=== PATIENT | male | born 1940 | race Caucasian/White ===

== ENCOUNTER 2018-07-27 20:22 | Inpatient (IN) | payer MEDICARE ==
--- NOTE | 2018-07-27 21:20 | RAD ---
PA AND LATERAL CHEST: HISTORY: Cough. Upper respiratory symptoms. FINDINGS: The heart size is within normal limits. There is a right upper lobe pneumonic infiltrate present. T he left lung appears clear. IMPRESSION: Right upper lobe pneumonia. POS: [facility]
[2018-07-27 22:29] LABS: White Blood Cell (WBC) Count 73.7 thou/uL (4.8-10.8)
[2018-07-27 22:32] LABS: ALT (SGPT) 37 U/L (8-55); AST (SGOT) 28 U/L (5-34); Albumin 3.8 g/dL (3.4-4.8); Alkaline Phosphatase 90 U/L (40-150); Anion Gap 15 mmol/L (10-20); BUN (Urea Nitrogen) 33 mg/dL (8.4-25.7); Bilirubin, Total 0.8 mg/dL (0.2-1.2); Calc. Creatinine Clearance 0 mL/min (70-130); Calcium 9.5 mg/dL (7.8-10.44); Carbon Dioxide 25 mmol/L (23-31); Chloride 101 mmol/L (98-107); Estimated GFR-MDRD 39; Globulin 2.9 g/dL (2.4-3.5); Glucose 114 mg/dL (83-110); Potassium 4.9 mmol/L (3.5-5.1); Protein, Total 6.7 g/dL (5.8-8.1); Sodium 136 mmol/L (136-145)
[2018-07-27 23:00] LABS: Band 3 % (5-11); Differential Comment Blast-Like Cell(s); Hemoglobin 9.9 g/dL (14.0-18.0); Lymphocytes 71 % (21-51); MDiff Complete? YES; Mean Corpuscular HGB CONC 31.9 g/dL (32.0-36.0); Mean Corpuscular Hemoglobin 35.4 pg (27.0-31.0); Mean Platelet Volume 7.9 fL (7.4-10.4); Monocytes 7 % (0-10); Neutrophil 3 % (42-75); PLT Morphology Comment Appears Adequate; Platelet Count 146 thou/uL (130-400); RBC Distribution Width 13.3 % (11.5-14.5); Red Blood Cell (RBC) Count 2.78 mill/uL (4.70-6.10); Reflex for Review?? YES
[2018-07-28] MEDS ORDERED: Azithromycin 500 MG VIAL ONE (00:32)
[2018-07-28] MEDS ORDERED: Cefepime 2 GM VIAL ONE (00:34)
[2018-07-28] MEDS ORDERED: Acetaminophen 325 MG TAB PO PRN ×2 (02:24→08:31)
[2018-07-28] MEDS ORDERED: Sodium Chloride 0.9% 1,000 ML IV SCH (02:24)
[2018-07-28] MEDS ORDERED: Ondansetron HCl/PF 4 MG/2 ML Vial IVP PRN ×3 (02:24→08:31)
[2018-07-28] MEDS ORDERED: Ondansetron ODT 4 MG TAB SL PRN (02:24)
[2018-07-28 02:45] VITALS: BMI 23.7
[2018-07-28] MEDS ORDERED: traMADol HCl 50 MG TAB PO PRN (08:31)
[2018-07-28] MEDS ORDERED: Loratadine 10 MG TAB PO PRN (08:31)
[2018-07-28] MEDS ORDERED: Diabetic Tussin 200 MG/10 ML UDCUP PO PRN (08:31)
[2018-07-28] MEDS ORDERED: Mag-Al 1200 mg/1200 mg/30 ML UDCUP PO PRN (08:31)
[2018-07-28] MEDS ORDERED: cloNIDine 0.1 MG TAB PO PRN (08:31)
[2018-07-28] MEDS ORDERED: traZODone HCl 50 MG TAB PO PRN (08:31)
[2018-07-28] MEDS ORDERED: Senokot 8.6 MG TAB PO PRN ×2 (08:31)
[2018-07-28] MEDS ORDERED: Benzonatate 100 MG CAP PO PRN (08:31)
[2018-07-28] MEDS ORDERED: Nitroglycerin 0.4 MG TAB (25 Tab Bottle) SL PRN (08:31)
[2018-07-28] MEDS ORDERED: Lorazepam 1 MG TAB PO PRN (08:31)
[2018-07-28] MEDS ORDERED: Bisacodyl 5 MG TAB PO PRN ×2 (08:31)
[2018-07-28] MEDS ORDERED: Calcium Carbonate 500 MG ChewTAB PO PRN (08:31)
[2018-07-28] MEDS ORDERED: hydrALAZINE 20 MG/ML VIAL SLOW IVP PRN (08:31)
[2018-07-28] MEDS ORDERED: Vancomycin HCl 1 GM in Premix Bag 1 BAG IVPB SCH (09:00)
[2018-07-28] MEDS ORDERED: Cefepime 2 GM in Sodium Chloride 0.9% 100 ML IVPB SCH (09:00)
[2018-07-28] MEDS ORDERED: Cefepime 1 GM in Sodium Chloride 0.9% 100 ML IVPB SCH (09:00)
[2018-07-28] MEDS: Sodium Chloride 0.9% 1,000 ML IV SCH ×2 (09:05→13:39)
[2018-07-28 09:41] LABS: Hemoglobin 9.7 g/dL (14.0-18.0); Mean Corpuscular HGB CONC 31.6 g/dL (32.0-36.0); Mean Platelet Volume 7.1 fL (7.4-10.4); Platelet Count 129 thou/uL (130-400); RBC Distribution Width 13.2 % (11.5-14.5); Red Blood Cell (RBC) Count 2.78 mill/uL (4.70-6.10); White Blood Cell (WBC) Count 69.2 thou/uL (4.8-10.8)
[2018-07-28 09:58] LABS: Lymphocytes 93 % (21-51); MDiff Complete? YES; Macrocytosis SLIGHT = 6-15 cells (100X) (0-5/hpf); Monocytes 4 % (0-10); Neutrophil 3 % (42-75)
[2018-07-28] MEDS: Enoxaparin Sodium 40 MG/0.4 ML SYRINGE SC SCH (10:00)
[2018-07-28 10:01] LABS: Anion Gap 14 mmol/L (10-20); BUN (Urea Nitrogen) 24 mg/dL (8.4-25.7); Calc. Creatinine Clearance 58 mL/min (70-130); Calcium 9.1 mg/dL (7.8-10.44); Carbon Dioxide 23 mmol/L (23-31); Chloride 104 mmol/L (98-107); Estimated GFR-MDRD 52; Glucose 128 mg/dL (83-110); Potassium 4.4 mmol/L (3.5-5.1); Sodium 137 mmol/L (136-145); Uric Acid 6.7 mg/dL (3.5-7.2)
[2018-07-28] MEDS: Famotidine 20 MG TAB PO SCH (10:01)
[2018-07-28] MEDS: guaiFENesin ER 600 MG TAB PO SCH ×2 (10:01→21:48)
[2018-07-28] MEDS ORDERED: Amlodipine 10 MG TAB PO SCH ×3 (10:14→11:00)
[2018-07-28] MEDS ORDERED: DESOXIMETASONE TOP PRN (10:14)
[2018-07-28] MEDS ORDERED: Metoprolol Tartrate 50 MG TAB PO SCH ×3 (10:16→21:00)
--- NOTE | 2018-07-28 10:47 | HP ---
PRIMARY CARE PHYSICIAN: Out of [facility]. PRIMARY ONCOLOGIST: Out of [facility]. CHIEF COMPLAINT: Cough. HISTORY OF PRESENT ILLNESS: Mr. 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 History is mainly obtained by the patient himself and electronic medical records have be en reviewed. Mr. Bradford reports that he has been having some mild URI symptoms for the last several days and repor julian that his primary care physician in [place] diagnosed him with pneumonia and told him to come to [facility] emergency room. He otherwise feels very good and has no symptoms at this time. He does have some nonproductive cough, but denies any shortness of breath, chest pain, fever, chills or myalgia, arthr algia. With regards to his history of leukemia, he is not sure what exactly he has, but he reports that he w as told that this can be monitored after he saw an oncologist in [place]. He said that his white chris l count has been reported high, but he was told that he does not require treatment at the moment. He was diagnosed about 1 year ago. Upon presentation to the emergency room, he was hemodynamically stable except for somewhat tachycardi c with a pulse of 103. His blood pressure was 157/72 and he was saturating 96% on room air. He unde rwent a chest x-ray which showed possible right upper lobe pneumonia. He was given IV antibiotics, n amely cefepime and azithromycin and is now being admitted for the same. PAST MEDICAL HISTORY: 1. Chronic kidney disease, status post nephrectomy for unknown reason. 2. Hypertension. 3. B cell leukemia. PAST SURGICAL HISTORY: 1. Nephrectomy. 2. Hernia repair. 3. Uvular taken out to prevent snoring. PSYCHIATRIC HISTORY: None. SOCIAL HISTORY: He has no history of drug, tobacco or alcohol abuse. Fairly active. FAMILY HISTORY: Denies any family history of premature coronary artery disease, stroke, cancer. No history of bleeding or clotting disorders. ALLERGIES: No known medication allergies. MEDICATIONS: Triamterene/hydrochlorothiazide 37.5/25 mg daily, Omnicef was started by PCP recently, Advair 2 sprays daily, amlodipine 10 mg daily, metoprolol 50 mg p.o. b.i.d., Elavil 100 mg daily, artemio azepril 40 mg daily, Nexium 20 mg daily. REVIEW OF SYSTEMS: A 12-point review of systems was done. It is negative except for those mentioned in the history and physical. LABORATORY DATA: CBC initially showed WBC count of 73,000 which the repeat CBC shows a WBC count of 69,000, hemoglobin 9.9, platelet count of 146 to 129 this morning. He has 93% lymphocytes. Peripher al smear pathology review is pending at this time. Serum chemistry shows BUN 33, creatinine 1.72, bl ood sugar 114, LDH is elevated to 366. Phosphorus is normal at 3.0, uric acid is pending. Chest x-ray by my review shows right upper lobe opacity consistent with pneumonia. PHYSICAL EXAMINATION: VITAL SIGNS: Most recent vital signs; temperature 98.7, pulse of 105, respirations 18, saturating 94 % on room air, blood pressure 153/74. His T-max is 100 degrees. GENERAL: No acute distress, awake, alert, oriented x3. HEENT: Mucous membranes are slightly dry. No oropharyngeal exudate or erythema. Head is normocepha lic, atraumatic. Pupils equal, reactive to light and accommodation. Extraocular movements intact. NECK: Supple without any lymphadenopathy, JVD or bruit. CHEST: Clear to auscultation except for a few expiratory wheezes. CARDIOVASCULAR: Rate and rhythm is regular without any murmur, rubs or gallops. ABDOMEN: Soft, nontender, nondistended with positive bowel sounds. EXTREMITIES: Free of any cyanosis, clubbing, or edema. NEUROLOGIC: Nonfocal. SKIN: Free of any rashes or bruises. Feels warm and dry to touch. IMPRESSION AND PLAN: 1. Right upper lobe pneumonia. The patient will be treated symptomatically and supportively along w ith IV antibiotics and IV fluids. He will be treated with cefepime and vancomycin given his immunoco mpromised status. He does not show any signs or symptoms to suggest sepsis. We will send a blood cu lture nevertheless. 2. Leukocytosis. I am not sure if this is indeed a blast crisis. The patient is rather dramaticall y stable without any symptoms at this time. We will check a uric acid, phosphorus, etc., to rule out tumor lysis syndrome and continue intravenous fluids for now. I have discussed the case with Graham bernardo warehouse distribution manager, Dr. Moser and he has requested the pathologist to review for blast cells. Currently, the patient will be treated with supportive care. I am not sure what his baseline WBC count has been or what kind of leukemia he has been diagnosed with. 3. Hypertension. Restart his home medications except for the diuretics given his acute renal insuff iciency. 4. Acute on chronic renal insufficiency. Restart home medications, but hold the diuretics for now. Continue with IV fluids. His repeat creatinine is improved to 1.33 and BUN has improved from 33 to 24. 5. Code status: FULL CODE. Discussed with the patient in detail. 6. Deep venous thrombosis and gastrointestinal prophylaxis. DISPOSITION: Mr. Bradford is currently being admitted to the hospital for right upper lobe pneumonia a nd leukocytosis. He is currently in observation status, given the fact that he is hemodynamically st able. Further management will depend upon his clinical course.
[2018-07-28] MEDS: Vancomycin HCl 1.5 GM in Sodium Chloride 0.9% 250 ML 300 ML IVPB SCH (10:51)
[2018-07-28] MEDS ORDERED: Betamethasone Val 0.1% OINT 15 GM TUBE TOP PRN (11:11)
[2018-07-28 13:04] LABS: Bilirubin Negative (Negative); Blood, Urine Negative (Negative); Clarity CLEAR (Clear); Glucose, Urine (Dipstick) Negative (Negative); Leukocyte Negative (Negative); Nitrite Negative (Negative); Protein, Urine (Dipstick) Negative (Neg-Trace); Specific Gravity, Urine 1.008 (1.002-1.036); pH, Urine 6.5 (5.0-9.0)
[2018-07-28] MEDS ORDERED: Hydroxyurea 500 MG CAP PO SCH (15:00)
--- NOTE | 2018-07-28 17:15 | PDOC.EVN ---
Event Note - Event Note Event Note: leukemic blast crisis can not be ruled out. Awaiting further results .Will change to Inpatient
--- NOTE | 2018-07-28 18:01 | CON ---
DATE OF CONSULTATION: 07/28/2018 REASON FOR CONSULTATION: Leukemia. HISTORY OF PRESENT ILLNESS: A 78-year-old male with history of CLL, chronic kidney disease status post unilateral nephrectomy, presenting to the emergency room with cough and difficulty breathing. The patient states he had mild upper respiratory symptoms for the last few days. Reported to his primary care physician in [place] who told him he had pneumonia and had to go to the emergency room. Patient stated he wanted to come back to [place] if he had to be admitted to the hospital. He otherwise denies any significant complaints and denies fevers, chills, night sweats and states his shortness of breath and cough have improved since admission to the hospital. He says he was diagnosed with CLL last year and follows with an oncologist, Dr. Mayberry in [place]. He says he was told he did not need treatment as of yet for his cancer and would be followed clinically until treatment was necessary. He denies any headaches, dizziness, change in vision, nausea, vomiting, pain or swelling in the hands. His white blood cells on admission to the hospital were 73.7 with a hemoglobin of 9.9 and platelets of 146. Some blast like appearing cells were mentioned in the differential on the CBC and thus Oncology was consulted. REVIEW OF SYSTEMS: Ten-point review of systems negative except as stated in the HPI. PAST MEDICAL HISTORY: B-cell leukemia, chronic kidney disease status post nephrectomy for unknown reason, hypertension. PAST SURGICAL HISTORY: Nephrectomy, hernia repair, uvula removal. SOCIAL HISTORY: Denies tobacco or alcohol. FAMILY HISTORY: Denies any family history of cancer or blood disorders. ALLERGIES: No known drug allergies. CURRENT MEDICATIONS: Reviewed. PHYSICAL EXAMINATION: VITAL SIGNS: Temperature 99, pulse 92, respirations 20, satting 92% on room air , blood pressure 134/65. GENERAL: No acute distress, sitting up in bed. HEENT: Mucous membranes are moist. No oral lesions. NECK: Supple, without any palpable lymphadenopathy. CARDIOVASCULAR: S1, S2, regular rate and rhythm without murmurs, rubs or gallops. RESPIRATORY: Expiratory wheezes in bilateral lower lungs, otherwise clear to auscultation. ABDOMEN: Soft, nondistended, and nontender. EXTREMITIES: No edema. NEUROLOGIC: Nonfocal. LYMPHATICS: No palpable lymphadenopathy. SKIN: No rashes or bruising. LABORATORY DATA: White blood cells 73.7, hemoglobin 9.9, hematocrit 30.9, platelets 146, lymphocytes 71%, blast like cells seen on differential. IMAGING DATA: Chest x-ray dated 07/27/2018 shows right upper lobe pneumonia. ASSESSMENT AND PLAN: A 78-year-old male with a new diagnosis of CLL within the last year, now presenting with pneumonia and found to have blasts on his peripheral smear. The patient presented to the hospital with white blood cell count of 73.7 and anemia with hemoglobin 9.9 and normal platelets. Blast like cells were seen on the differential. I spoke with pathology who confirmed there are blast cells in the peripheral smear approximately 20% or more in white blood cells. This would be diagnostic of acute leukemia. However, it is difficult to have a precise percentage upon physical review of the smear. I have requested flow cytometry which can confirm a more precise percentage of blasts. The patient is otherwise stable and improving with antibiotics. He does not have severe thrombocytopenia. Does not have evidence of leukostasis on history/exam. The patient would need to be transferred to [facility] for treatment of acute leukemia once confirmed with flow cytometry later today or in the morning. This could be done as an outpatient as the patient is stable; however, we will await results of flow before deciding. Given the patient's elevated white blood cell count and likelihood of acute leukemia, I will start the patient on hydroxyurea for cytoreduction in order to prevent leukostasis. He is already on allopurinol and has normal uric acid. Continue IV-hydration. We will continue to follow this patient. Thank you for the consult. BRIAN
[2018-07-28] MEDS: Cefepime 1 GM in Sodium Chloride 0.9% 100 ML IVPB SCH (21:48)
[2018-07-28] MEDS: Metoprolol Tartrate 50 MG TAB PO SCH (21:48)
[2018-07-29] MEDS: Sodium Chloride 0.9% 1,000 ML IV SCH ×2 (01:21→09:02)
[2018-07-29 04:27] LABS: Hemoglobin 9.1 g/dL (14.0-18.0); Mean Corpuscular HGB CONC 31.4 g/dL (32.0-36.0); Mean Corpuscular Hemoglobin 34.9 pg (27.0-31.0); Mean Platelet Volume 7.5 fL (7.4-10.4); Platelet Count 123 thou/uL (130-400); RBC Distribution Width 13.2 % (11.5-14.5); White Blood Cell (WBC) Count 63.1 thou/uL (4.8-10.8)
[2018-07-29 04:34] LABS: Anion Gap 10 mmol/L (10-20); BUN (Urea Nitrogen) 20 mg/dL (8.4-25.7); Calc. Creatinine Clearance 66 mL/min (70-130); Calcium 8.6 mg/dL (7.8-10.44); Carbon Dioxide 23 mmol/L (23-31); Chloride 106 mmol/L (98-107); Estimated GFR-MDRD 61; Glucose 111 mg/dL (83-110); Potassium 4.4 mmol/L (3.5-5.1); Sodium 135 mmol/L (136-145)
[2018-07-29 04:43] LABS: Band 1 % (5-11); Lymphocytes 95 % (21-51); MDiff Complete? YES; Macrocytosis SLIGHT = 6-15 cells (100X) (0-5/hpf); Monocytes 1 % (0-10); Neutrophil 1 % (42-75); PLT Morphology Comment Appears Decreased; Reactive Lymphocytes 2 % (0-10)
[2018-07-29] MEDS: Amlodipine 10 MG TAB PO SCH (08:52)
[2018-07-29] MEDS: Allopurinol 100 MG TAB PO SCH (08:53)
[2018-07-29] MEDS: guaiFENesin ER 600 MG TAB PO SCH ×2 (08:53→22:47)
[2018-07-29] MEDS: Famotidine 20 MG TAB PO SCH (08:54)
[2018-07-29] MEDS: Cefepime 1 GM in Sodium Chloride 0.9% 100 ML IVPB SCH ×2 (08:54→22:45)
[2018-07-29] MEDS: Enoxaparin Sodium 40 MG/0.4 ML SYRINGE SC SCH (08:55)
[2018-07-29] MEDS: Metoprolol Tartrate 50 MG TAB PO SCH ×2 (08:55→22:47)
[2018-07-29] MEDS ORDERED: Non-Formulary Item 1 EACH (Esomeprazole Magnesium [Nexium] 20 MG) PO SCH (09:00)
[2018-07-29] MEDS ORDERED: Amlodipine 5 MG TAB PO SCH (09:00)
[2018-07-29] MEDS ORDERED: Non-Formulary Item 1 EACH (Benazepril Hcl [Benazepril Hcl] 40 MG) PO SCH (09:00)
[2018-07-29] MEDS: Hydroxyurea 500 MG CAP PO SCH (09:19)
[2018-07-29] MEDS: Vancomycin HCl 1.5 GM in Sodium Chloride 0.9% 250 ML 300 ML IVPB SCH (11:12)
--- NOTE | 2018-07-29 14:07 | PDOC.PN ---
- Subjective Encounter Start Date: 07/29/18 Encounter Start Time: 14:06 Subjective: feels very good , no CP/SOB.no fever/chills - Objective Resuscitation Status: Resuscitation Status FULL:Full Resuscitation MAR Reviewed: Yes Vital Signs & Weight: Vital Signs (12 hours) Temp Pulse Resp BP BP Pulse Ox 07/29/18 08:53 134/65 07/29/18 08:52 97 07/29/18 08:00 99.1 F 78 20 134/76 91 L 07/29/18 04:00 96 Weight Admit Weight 194 lb 15.982 oz Weight 194 lb 0.108 oz I&O: 07/28/18 07/29/18 07/30/18 06:59 06:59 06:59 Intake Total 250 3350 Output Total 450 425 Balance -200 2925 Result Diagrams: 07/29/18 04:11 07/29/18 04:11 Additional Labs: Microbiology 07/28/18 12:28 Venous blood - Right Arm Blood Culture - Preliminary Specimen has been received and culture in progress. No Growth to date. 07/28/18 12:20 Venous blood - Right Hand Blood Culture - Preliminary Specimen has been received and culture in progress. No Growth to date. Phys Exam - Physical Examination Constitutional: NAD HEENT: PERRLA, moist MMs, sclera anicteric, oral pharynx no lesions Neck: no nodes, no JVD, supple, full ROM Respiratory: no wheezing, no rales, no rhonchi, clear to auscultation bilateral Cardiovascular: RRR, no significant murmur, no rub Gastrointestinal: soft, non-tender, no distention, positive bowel sounds Musculoskeletal: no edema, pulses present Neurological: non-focal, normal sensation, moves all 4 limbs Psychiatric: normal affect, A&O x 3 Skin: no rash Dx/Plan (1) PNA (pneumonia) Code(s): J18.9 - PNEUMONIA, UNSPECIFIED ORGANISM Status: Acute Qualifiers: Pneumonia type: due to unspecified organism Laterality: right Lung location: upper lobe of lung Qualified Code(s): J18.1 - Lobar pneumonia, unspecified organism (2) Leucocytosis Code(s): D72.829 - ELEVATED WHITE BLOOD CELL COUNT, UNSPECIFIED Status: Acute Qualifiers: Leukocytosis type: lymphocytosis Qualified Code(s): D72.820 - Lymphocytosis (symptomatic) Comment: Suspect Blast Transformation due to CLL (3) Leukemia Code(s): C95.90 - LEUKEMIA, UNSPECIFIED NOT HAVING ACHIEVED REMISSION Status: Chronic Qualifiers: Lymphoid leukemia type: chronic lymphocytic B-cell (4) Anemia Code(s): D64.9 - ANEMIA, UNSPECIFIED Status: Chronic Qualifiers: Anemia type: bone marrow failure (5) Thrombocytopenia Code(s): D69.6 - THROMBOCYTOPENIA, UNSPECIFIED Status: Acute - Plan continue antibiotics, out of bed/ambulate, DVT proph w/SCDs Will likley need transfer to [facility] if flow cytometry +ve for blasts -: cont IVF and Empiric IV ABx for now. -: Oncology following -: Pt hemodynamically stable.Asymptomatic -: monitor labs,including CBC * . Review of Systems - Review of Systems Constitutional: negative: fever, chills, sweats, weakness, malaise, other ENT: negative: Ear Pain, Ear Discharge, Nose Pain, Nose Discharge, Nose Congestion, Mouth Pain, Mouth Swelling, Throat Pain, Throat Swelling, Other Respiratory: negative: Cough, Dry, Shortness of Breath, Hemoptysis, SOB with Excertion, Pleuritic Pain, Sputum, Wheezing Cardiovascular: negative: chest pain, palpitations, orthopnea, paroxysmal nocturnal dyspnea, edema, light headedness, other Gastrointestinal: negative: Nausea, Vomiting, Abdominal Pain, Diarrhea, Constipation, Melena, Hematochezia, Other Genitourinary: negative: Dysuria, Frequency, Incontinence, Hematuria, Retention , Other Musculoskeletal: negative: Neck Pain, Shoulder Pain, Arm Pain, Back Pain, Hand Pain, Leg Pain, Foot Pain, Other Skin: negative: Rash, Lesions, Louis, Bruising, Other Neurological: negative: Weakness, Numbness, Incoordination, Change in Speech, Confusion, Seizures, Other - Medications/Allergies Allergies/Adverse Reactions: Allergies Allergy/AdvReac Type Severity Reaction Status Date / Time No Known Drug Allergies Allergy Verified 07/28/18 04:30 Medications: Current Medications Acetaminophen (Tylenol) 650 mg PO Q4H PRN PRN Reason: Headache/Fever or Pain Al Hydroxide/Mg Hydroxide (Maalox) 30 ml PO Q6H PRN PRN Reason: Heartburn or Indigestion Albuterol/Ipratropium (Duoneb) 3 ml NEB Q4H PRN PRN Reason: SOB &/or Wheezing Allopurinol (Zyloprim) 100 mg PO DAILY [facility] Last Admin: 07/29/18 08:53 Dose: 100 mg Amlodipine Besylate (Norvasc) 10 mg PO DAILY [facility] Last Admin: 07/29/18 08:52 Dose: 10 mg Benazepril HCl (Lotensin) 40 mg PO DAILY [facility] Last Admin: 07/29/18 08:53 Dose: 40 mg Benzonatate (Tessalon) 100 mg PO Q4H PRN PRN Reason: Cough Betamethasone Valerate (Valisone 0.1% Ointment) 0 gm TOP BIDPRN PRN PRN Reason: Rash/Topical Irritation Bisacodyl (Dulcolax) 10 mg PO DAILYPRN PRN PRN Reason: Constipation Bisacodyl (Dulcolax) 10 mg PO DAILYPRN PRN PRN Reason: Constipation Calcium Carbonate (Tums) 1,000 mg PO Q4H PRN PRN Reason: Heartburn or Indigestion Clonidine (Catapres) 0.1 mg PO Q4H PRN PRN Reason: Systolic BP > 160 Enoxaparin Sodium (Lovenox) 40 mg SC 0900 [facility] Last Admin: 07/29/18 08:55 Dose: 40 mg Famotidine (Pepcid) 20 mg PO DAILY [facility] Last Admin: 07/29/18 08:54 Dose: 20 mg Guaifenesin (Robitussin Sf) 200 mg PO Q4H PRN PRN Reason: Cough Guaifenesin (Mucinex) 1,200 mg PO Q12HR [facility] Last Admin: 07/29/18 08:53 Dose: 1,200 mg Hydralazine HCl (Apresoline) 10 mg SLOW IVP Q4H PRN PRN Reason: Systolic BP > 170 Hydroxyurea (Hydrea) 1,000 mg PO DAILY [facility] Last Admin: 07/29/18 09:19 Dose: 1,000 mg Sodium Chloride (Normal Saline 0.9%) 1,000 mls @ 125 mls/hr IV .Q8H [facility] Last Admin: 07/29/18 09:02 Dose: 1,000 mls Cefepime HCl 1 gm/ Sodium (Chloride) 100 mls @ 200 mls/hr IVPB Q12HR [facility] Last Admin: 07/29/18 08:54 Dose: 100 mls Vancomycin HCl 1.5 gm/ Sodium (Chloride) 300 mls @ 200 mls/hr IVPB 1000 [facility] Last Admin: 07/29/18 11:12 Dose: 300 mls Loratadine (Claritin) 10 mg PO DAILYPRN PRN PRN Reason: Sinus Symptoms Lorazepam (Ativan) 1 mg PO Q4H PRN PRN Reason: Anxiety/Agitation Metoprolol Tartrate (Lopressor) 50 mg PO BID [facility] Last Admin: 07/29/18 08:55 Dose: 50 mg Nitroglycerin (Nitrostat) 0.4 mg SL Q5MIN PRN PRN Reason: Chest Pain (Fluticasone/Salmeterol [ Fluticasone- Salmeterol 55-14] 2 Sprays 2 sprays EA [facility] Ondansetron HCl (Zofran) 4 mg IVP Q6H PRN PRN Reason: Nausea/Vomiting Pantoprazole Sodium (Protonix) 40 mg PO DAILY [facility] Last Admin: 07/29/18 08:53 Dose: 40 mg Senna (Senokot) 2 tab PO HSPRN PRN PRN Reason: Constipation Sodium Chloride (Flush - Normal Saline) 10 ml IVF Q12HR [facility] Last Admin: 07/29/18 08:54 Dose: 10 ml Sodium Chloride (Flush - Normal Saline) 10 ml IVF PRN PRN PRN Reason: Saline Flush Tramadol HCl (Ultram) 50 mg PO Q4H PRN PRN Reason: Moderate Pain (4-6) Trazodone HCl (Desyrel) 50 mg PO HSPRN PRN PRN Reason: Insomnia
[2018-07-30] MEDS: Sodium Chloride 0.9% 1,000 ML IV SCH (05:50)
[2018-07-30 06:21] LABS: Hemoglobin 8.6 g/dL (14.0-18.0); Mean Corpuscular HGB CONC 31.8 g/dL (32.0-36.0); Mean Corpuscular Hemoglobin 35.1 pg (27.0-31.0); Mean Platelet Volume 7.5 fL (7.4-10.4); Platelet Count 122 thou/uL (130-400); RBC Distribution Width 13.1 % (11.5-14.5); Red Blood Cell (RBC) Count 2.44 mill/uL (4.70-6.10); White Blood Cell (WBC) Count 58.2 thou/uL (4.8-10.8)
[2018-07-30 06:26] LABS: Anion Gap 13 mmol/L (10-20); BUN (Urea Nitrogen) 19 mg/dL (8.4-25.7); Calc. Creatinine Clearance 72 mL/min (70-130); Calcium 9.1 mg/dL (7.8-10.44); Carbon Dioxide 23 mmol/L (23-31); Chloride 107 mmol/L (98-107); Estimated GFR-MDRD 67; Glucose 114 mg/dL (83-110); Potassium 4.9 mmol/L (3.5-5.1); Sodium 138 mmol/L (136-145)
[2018-07-30 06:39] LABS: Hypochromia SLIGHT = 6-15 cells (100X) (0-5/hpf); Lymphocytes 98 % (21-51); MDiff Complete? YES; Macrocytosis SLIGHT = 6-15 cells (100X) (0-5/hpf); Neutrophil 2 % (42-75); PLT Morphology Comment Appears Adequate
[2018-07-30 07:38] VITALS: TEMP 98.1
[2018-07-30] MEDS: Amlodipine 10 MG TAB PO SCH (08:59)
[2018-07-30] MEDS: guaiFENesin ER 600 MG TAB PO SCH (08:59)
[2018-07-30] MEDS: Allopurinol 100 MG TAB PO SCH (08:59)
[2018-07-30] MEDS: Hydroxyurea 500 MG CAP PO SCH (09:00)
[2018-07-30] MEDS: Famotidine 20 MG TAB PO SCH (09:00)
[2018-07-30] MEDS: Enoxaparin Sodium 40 MG/0.4 ML SYRINGE SC SCH (09:03)
[2018-07-30] MEDS: Metoprolol Tartrate 50 MG TAB PO SCH (09:07)
[2018-07-30 09:58] VITALS: BP 152/82
--- NOTE | 2018-07-30 14:13 | DIS ---
DATE OF ADMISSION: 07/28/2018 DATE OF DISCHARGE: 07/30/2018 CONDITION AT THE TIME OF DISCHARGE: Stable and improved. DISCHARGE DISPOSITION: Home. PRIMARY CARE PHYSICIAN: Out of town in [place]. DISCHARGE DIAGNOSES: 1. Right upper lobe pneumonia. 2. CLL without evidence of blast transformation by flow cytometry. 3. Acute renal insufficiency. 4. Anemia of chronic disease. 5. Thrombocytopenia secondary to #2. 6. Leukocytosis secondary to #2. DISCHARGE MEDICATIONS: Omnicef 300 mg p.o. b.i.d. for 7 more days, doxycycline 100 mg p.o. b.i.d. fo r 7 more days. Resume home medications as per the HPI. New medications, Tessalon Perles p.r.n., alb uterol inhaler 1 puff q.i.d. p.r.n., Florastor 250 mg daily. DISCONTINUED MEDICATIONS: Triamterene hydrochlorothiazide. Patient will discuss with the primary ca re physician if it is safe to restart these medicines. HISTORY OF PRESENTING ILLNESS: Mr. Bradford is a very pleasant 78-year-old male who came to the emerge ncy room after he was told by his primary care physician that he might have had pneumonia. He has be en having some cough and shortness of breath. He has a diagnosis of leukemia as per the patient upon presentation, which is under control and has not required any intervention or treatment so far. He follows up with outpatient Oncology in [facility]. Upon presentation, his pulse was 103, but other fuller he was hemodynamically stable. Chest x-ray showed right upper lobe pneumonia. He was admitted and started on empiric antibiotics and IV fluids. He did have evidence of acute renal insufficiency on presentation with a creatinine of 1.72. His CBC was dramatically remarkable for a WBC count of 73,000 with repeat WBC count of 69,000 with hemoglobi n 9.9, platelet count of 146, 93% were lymphocytes. Please see admission history and physical for fu rther detail. Oncology was consulted. HOSPITAL COURSE: The patient was rather asymptomatic throughout his hospitalization. Cultures were sent and were negative until date. He was continued on IV antibiotic. With regards to his lymphocytosis and leukocytosis, Oncology saw the patient. Peripheral smear was d one which was somewhat concerning for 20% blasts. Flow cytometry was sent which actually showed 0% b lasts. His cytology was consistent with CLL. As of this morning, the patient is hemodynamically stable and asymptomatic and Oncology has cleared h im for discharge as there is no evidence of blast transformation. Briefly we have entertained the po ssibility of transferring to [facility] if it was a blast crisis indeed. He was seen and examined and discharge plan was discussed with the patient and his present in th e room. I have updated them that he does have anemia and evidence of low platelet count and would be nefit from follow up with his oncologist in next few weeks. They are also encouraged to follow with [facility] physician. His renal insufficiency has improved by withholding the triamterene hydrochlo rothiazide and giving him IV fluids. He will resume it if indicated by his primary care physician. He was seen and examined prior to discharge. PHYSICAL EXAMINATION: VITAL SIGNS: This morning, temperature 98.1, pulse of 90, respirations 20, saturating 94% on room ai r, blood pressure 151/82. GENERAL APPEARANCE: No acute distress. CHEST: Showing some expiratory wheezes very faint otherwise clear to auscultation bilaterally. Rate and rhythm is regular. LABORATORY EXAMINATION: Blood culture negative at 48 hours. WBC at the time of discharge 58,000 wit h 98% lymphocytes, hemoglobin 8.6, platelet count of 122. Total time spent 32 minutes.
== END 2018-07-30 11:37 | disposition short-term general hospital (02) | DRG 195 ==
LOC: ERS 20:22 → ONC 07-28 00:08 → OBSVTOIN 07-28 17:13
PROVIDERS: ADMIT Hospitalist; ATTEND Hospitalist
DX: J18.9 Pneumonia, unspecified organism (principal); I10 Essential (primary) hypertension; Z90.5 Acquired absence of kidney; Z85.6 Personal history of leukemia; Z79.899 Other long term (current) drug therapy; N28.9 Disorder of kidney and ureter, unspecified; D63.8 Anemia in other chronic diseases classified elsewhere; D69.6 Thrombocytopenia, unspecified; D72.829 Elevated white blood cell count, unspecified
CPT/HCPCS: 36415; 71046; 80048; 80053; 81003; 83615; 84100; 84550; 85025; 85060; 87040; 88184; 96374; 96375; A4216; G8978-GP-CH; G8979-GP-CH; G8980-GP-CH; J0456; J0692; J1650; J2405; J3370; J7050

== ENCOUNTER 2018-08-06 11:47 | Day surgery (SDC) | payer MEDICARE ==
[2018-08-06 12:25] LABS: PTT 24.1 SEC (22.9-36.1); Prothrombin Time 13.7 SEC (12.0-14.7)
[2018-08-06 15:29] VITALS: BP 145/80; TEMP 97.9
[2018-08-06 15:33] VITALS: BMI 23.3
--- NOTE | 2018-08-06 15:44 | CT ---
CT GUIDED PERCUTANEOUS RIGHT ILIAC BONE MARROW ASPIRATION AND BIOPSY 08/06/18 HISTORY: Patient with leukemia (CLL). Bone marrow aspiration and biopsy was requested. TECHNIQUE: The procedure including risks and complications were explained to the patient and informed consent wa s obtained. Patient was placed on the CT scan table in the prone position. Limited noncontrasted CT s can was obtained through the iliac bones with grid localizer in place. An area overlying the right il iac bone was marked, and the area was meticulously prepped and draped in the usual sterile fashion. S kin and subcutaneous tissues were infiltrated with buffered 1% lidocaine for local anesthesia. Small skin incision was made. An 11 gauge bone biopsy needle was advanced to the level of the right iliac bone and three noncontras julian CT images were obtained to evaluate trajectory of the needle. The needle was then advanced utili zing a drill just through the cortex of the iliac bone. Approximately 8 mL of bone marrow aspirate wa s obtained. An approximately 1.5 cm bone biopsy was then obtained utilizing a drill. Hemostasis was achieved with direct pressure. Dry sterile dressing was placed. Patient tolerated the procedure well without immediate complication. Patient transported to radiology nurses holding area f or further monitoring prior to discharge. IMPRESSION: Technically successful CT guided bone marrow aspiration and biopsy right iliac bone. POS: [facility]
== END 2018-08-06 15:10 | disposition home or self-care (01) ==
LOC: CT 11:47
PROVIDERS: ATTEND Internal Medicine Hematology & Oncology
PROC: 0QB23ZX Excision of Right Pelvic Bone, Percutaneous Approach, Diagnostic (ICD-10-PCS; principal; 2018-08-06)
DX: C91.10 Chronic lymphocytic leukemia of B-cell type not having achieved remission (principal); Z79.899 Other long term (current) drug therapy
CPT/HCPCS: 20225; 77012; 85097; 85610; 85730; 88184; 88237; 88264; 88280; 88305; 88311; 88313; 88341; 88342

== ENCOUNTER 2018-09-05 07:39 | Emergency (ER) | payer MEDICARE ==
[2018-09-05 09:35] LABS: Mean Corpuscular HGB CONC 32.7 g/dL (32.0-36.0); Mean Corpuscular Hemoglobin 37.3 pg (27.0-31.0); Mean Platelet Volume 7.3 fL (7.4-10.4); Platelet Count 141 thou/uL (130-400); RBC Distribution Width 14.5 % (11.5-14.5); Red Blood Cell (RBC) Count 2.95 mill/uL (4.70-6.10); White Blood Cell (WBC) Count 46.6 thou/uL (4.8-10.8)
[2018-09-05 09:42] LABS: Anion Gap 12 mmol/L (10-20); BUN (Urea Nitrogen) 24 mg/dL (8.4-25.7); Calc. Creatinine Clearance 0 mL/min (70-130); Calcium 9.9 mg/dL (7.8-10.44); Carbon Dioxide 25 mmol/L (23-31); Chloride 105 mmol/L (98-107); Estimated GFR-MDRD 52; Glucose 102 mg/dL (83-110); Potassium 4.3 mmol/L (3.5-5.1); Sodium 138 mmol/L (136-145)
[2018-09-05 09:44] LABS: Eosinophils 1 % (0-10); Lymphocytes 97 % (21-51); MDiff Complete? YES; Macrocytosis SLIGHT = 6-15 cells (100X) (0-5/hpf); Neutrophil 2 % (42-75)
--- NOTE | 2018-09-05 10:32 | RAD ---
LUMBAR SPINE 3 VIEWS: Date: 09/05/18 PROVIDED CLINICAL HISTORY: Low back pain. FINDINGS: Five non-rib bearing lumbar-type vertebral bodies are present. There is right convexity curvature of the lumbar spine. Sagittal lumbar alignment appears normal. Vertebral body heights appear preserved. Advanced multilevel lumbar disc and facet degenerative changes are seen. Vascular calcifications are noted. IMPRESSION: Advanced multilevel lumbar disc and facet degenerative change. POS: [facility]
== END 2018-09-05 10:29 | disposition home or self-care (01) ==
LOC: ERS 07:39
DX: M54.5 Low back pain (principal); I10 Essential (primary) hypertension; C95.90 Leukemia, unspecified not having achieved remission; Z79.899 Other long term (current) drug therapy
CPT/HCPCS: 36415; 72100; 80048; 85025

== ENCOUNTER 2020-04-18 07:37 | Outpatient (CLI) | payer MEDICARE ==
--- NOTE | 2020-04-18 10:31 | MRI ---
LUMBAR SPINE MRI WITHOUT IV CONTRAST: HISTORY: Low back pain and sciatica. FINDINGS: Multiplanar, multisequence MRI examination of the lumbar spine is performed. There is fairly marked dextroscoliosis. Diffuse disk-osteophytosis and facet arthrosis with considerable disk desiccation c hanges at multiple levels. Very small partially visualized left kidney with possible mild hydronephr osis. Depending upon concern, followup bilateral renal ultrasound or abdomen and pelvic CT scan shou ld be considered. Several nonspecific T2 hyperintense T1 hypointense foci in the right kidney, possi chevy a small cyst or minimal hydronephrosis. No evidence for acute abnormal marrow edema. T12-L1 disk: Moderate bilateral recess stenosis. L1-L2 disk: Moderate bilateral recess stenosis worse on the right side with mild foraminal stenosis. L2-L3 disk: Mild left lateral recess stenosis and moderate bilateral foraminal stenosis. L3-L4 disk: Marked diffuse disk bulging with a large focal left paracentral disk herniation with camille rly marked caudal diskal migration down to the L4 pedicle level with marked left lateral recess steno sis and left-sided thecal sac compression with marked bilateral foraminal stenosis. L4-L5 disk: Severe diffuse disk bulging with severe central canal and lateral recess and bilateral f oraminal stenosis. L5-S1 disk: Diffuse disk bulging with mild lateral recess stenosis and moderate to severe bilateral foraminal stenosis. IMPRESSION: Multilevel variable severity canal, lateral recess, and foraminal stenosis as above. Dextroscoliosis . Partially visualized small atrophic-appearing left kidney with possible mild hydronephrosis. Nuria ral T2 hyperintense foci of the right kidney, possibly small cysts or minimal hydronephrosis. Consid er followup bilateral renal ultrasound or abdomen and pelvic CT scan for further assessment in this r egard. POS: RRE
--- NOTE | 2020-04-18 10:35 | RAD ---
LUMBAR SPINE 4 VIEWS: HISTORY: Low back pain and sciatica. COMPARISON: 09/05/2018. FINDINGS: Moderate dextroscoliosis of the lumbar spine. Severe multilevel disk-osteophytosis and facet arthros is. No abnormal translation between flexion and extension. Mild stable vertical height loss of L1 v ertebral body. IMPRESSION: Severe spondylosis. No abnormal translation between flexion and extension. Moderate dextroscoliosis . POS: RRE
== END 2020-04-18 07:38 | disposition home or self-care (01) ==
LOC: BICMRI 07:37
PROVIDERS: ATTEND Neurological Surgery
DX: M54.40 Lumbago with sciatica, unspecified side (principal); M47.816 Spondylosis without myelopathy or radiculopathy, lumbar region; M41.9 Scoliosis, unspecified; M48.061 Spinal stenosis, lumbar region without neurogenic claudication; N26.1 Atrophy of kidney (terminal); R93.421 Abnormal radiologic findings on diagnostic imaging of right kidney; M48.07 Spinal stenosis, lumbosacral region; M48.05 Spinal stenosis, thoracolumbar region
CPT/HCPCS: 72110; 72148

== ENCOUNTER 2020-08-16 15:03 | Outpatient (CLI) | payer MEDICARE ==
--- NOTE | 2020-08-16 16:28 | CT ---
CT temporal bones noncontrast: 08/16/2020 HISTORY: 80-year-old male with right otorrhea H 92.11 FINDINGS: There is thickening of the right tympanic membrane. Contiguous with this thickening, there is a thin, small amount of soft tissue density material in Prussak's space which broadly abuts the lower portion of the body of the incus, and adjacent upper portion of the long process of the incus. There is no erosion of the scutum, and no displacement of ossicles. The rest of the right middle ear cavity is clear. The right mastoid antrum and most of the right mast oid air cells, are clear. There is opacification of some of the right mastoid air cells consistent with small right mastoid effusion. Left middle ear cavity, left mastoid antrum, and most of the left mastoid air cells, are clear. No erosion of left scutum. No erosion or displacement of left ossicles. The bone over the bilateral superior semicircular canals is thin, especially on the right. This patie nt difficult to rule out right sided dehiscence. No definitive evidence of such dehiscence. There is an approximately 5 x 2 mm posterior extension protruding from the posterior medial aspect of the right internal auditory canal projecting into adjacent bone. Etiology and significance is uncertain. The right internal auditory canal caliber is normal. Left internal auditory canal, bilateral cochleae, vestibules, semicircular canals, vestibular aqueduc ts, carotid canals, jugular bulbs, and facial nerve canals, have normal morphology. There are degenerative changes in the bilateral TMJs, right greater than left. IMPRESSION: 1.) Nonspecific finding of thickening of right tympanic membrane and a small amount of soft tissue de nsity material abutting portions of the right ossicles (perhaps granulation tissue). 2) osteoarthrosis of bilateral temporomandibular joints.
== END 2020-08-16 15:04 | disposition home or self-care (01) ==
LOC: BICCT 15:03
DX: H92.11 Otorrhea, right ear (principal); M19.09 Primary osteoarthritis, other specified site; H73.891 Other specified disorders of tympanic membrane, right ear; M79.89 Other specified soft tissue disorders
CPT/HCPCS: 70480

== ENCOUNTER 2020-12-27 22:30 | Emergency (ER) | payer MEDICARE ==
[2020-12-27] MEDS ORDERED: Albuterol 200 PUFF (6.7GM INHALER) ONE (23:22)
--- NOTE | 2020-12-27 23:40 | RAD ---
Chest one view HISTORY: Dyspnea. COMPARISON: 07/27/2018. FINDINGS: Cardiac silhouette is magnified by projection. Pulmonary vasculature are unremarkable. Mediastinum is midline with aortic calcification. Minimal linear scarring in the right upper lobe. No lobar consolidation or evidence of pneumothorax. IMPRESSION : No acute abnormalities are demonstrated.
[2020-12-27 23:42] LABS: #Lymphocytes 1.2 thou/uL (1.20-3.40); #Monocytes 0.9 thou/uL (0.11-0.59); #Neutrophils 7.8 thou/uL (1.40-6.50); %Basophils 0.5 % (0.0-1.0); %Eosinophils 0.5 % (0.0-10.0); %Lymphocytes 11.9 % (21.0-51.0); %Neutrophils 78.2 % (42.0-75.0); Hemoglobin 14.8 g/dL (14.0-18.0); Mean Corpuscular HGB CONC 33.2 g/dL (32.0-36.0); Mean Corpuscular Hemoglobin 30.4 pg (27.0-31.0); Mean Corpuscular Volume 91.6 fL (78.0-98.0); Mean Platelet Volume 8.2 fL (7.4-10.4); Platelet Count 223 thou/uL (130-400); RBC Distribution Width 12.1 % (11.5-14.5); Red Blood Cell (RBC) Count 4.87 mill/uL (4.70-6.10)
[2020-12-28 00:23] LABS: ALT (SGPT) 14 U/L (8-55); AST (SGOT) 20 U/L (5-34); Albumin 4.4 g/dL (3.4-4.8); Alkaline Phosphatase 57 U/L (40-110); Anion Gap 20 mmol/L (10-20); BUN (Urea Nitrogen) 32 mg/dL (8.4-25.7); CK (CPK) 120 U/L (30-200); Calc. Creatinine Clearance 0 mL/min (70-130); Calcium 10.1 mg/dL (7.8-10.44); Carbon Dioxide 20 mmol/L (23-31); Chloride 102 mmol/L (98-107); Globulin 2.6 g/dL (2.4-3.5); Glucose 141 mg/dL (83-110); Sodium 138 mmol/L (136-145)
--- NOTE | 2020-12-30 15:18 | EKG ---
Test Reason : SOB Blood Pressure : / mmHG Vent. Rate : 108 BPM Atrial Rate : 108 BPM P-R Int : 132 ms QRS Dur : 096 ms QT Int : 334 ms P-R-T Axes : 119 -37 065 degrees QTc Int : 447 ms Sinus tachycardia Left axis deviation Pulmonary disease pattern Nonspecific ST and T wave abnormality Abnormal ECG Confirmed by TAE CALLOWAY M.D. ([id number]), technical editor CRISTINA MCCORMICK ([id number] on 12/30/2020 3:17:32 PM Referred By: Confirmed By:TAE CALLOWAY M.D.
== END 2020-12-28 02:50 | disposition home or self-care (01) ==
LOC: ERS 22:30
DX: R06.02 Shortness of breath (principal); I10 Essential (primary) hypertension; Z79.899 Other long term (current) drug therapy
CPT/HCPCS: 36415; 71045; 80053; 82550; 83880; 84484; 85025; 93005

== ENCOUNTER 2022-05-23 13:53 | Outpatient (CLI) | payer MEDICARE | END 2022-05-23 13:54 | disposition home or self-care (01) | LOC: SCSMRI 13:53 | PROVIDERS: ATTEND Family Medicine | DX: M25.551 Pain in right hip (principal); M47.26 Other spondylosis with radiculopathy, lumbar region; M51.16 Intervertebral disc disorders with radiculopathy, lumbar region; M48.061 Spinal stenosis, lumbar region without neurogenic claudication; M16.11 Unilateral primary osteoarthritis, right hip; Q76.49 Other congenital malformations of spine, not associated with scoliosis | CPT/HCPCS: 72148 ==

== ENCOUNTER 2022-09-09 07:54 | Inpatient (IN) | payer MEDICARE ==
[2022-09-09] MEDS ORDERED: Nitroglycerin 2% Ointment 1 INCH/1 GM Packet ONE (09:42)
[2022-09-09] MEDS ORDERED: Aspirin Chewable 81 MG TAB ONE (09:42)
[2022-09-09 09:51] LABS: Hemoglobin 15.2 g/dL (14.0-18.0); Mean Corpuscular HGB CONC 31.3 g/dL (32.0-36.0); Mean Corpuscular Hemoglobin 31.1 pg (27.0-31.0); Mean Corpuscular Volume 99.3 fl (78.0-98.0); Mean Platelet Volume 7.3 fL (7.4-10.4); Platelet Count 260 thou/uL (130-400); RBC Distribution Width 13.6 % (11.5-14.5); White Blood Cell (WBC) Count 11.2 thou/uL (4.8-10.8)
[2022-09-09 10:03] LABS: ALT (SGPT) 27 U/L (8-55); AST (SGOT) 34 U/L (5-34); Albumin 4.2 g/dL (3.4-4.8); Alkaline Phosphatase 65 U/L (40-110); Anion Gap 16 mmol/L (10-20); BUN (Urea Nitrogen) 27 mg/dL (8.4-25.7); Bilirubin, Total 0.9 mg/dL (0.2-1.2); CK (CPK) 31 U/L (30-200); Calc. Creatinine Clearance 0 mL/min (70-130); Calcium 9.3 mg/dL (7.8-10.44); Carbon Dioxide 22 mmol/L (23-31); Chloride 106 mmol/L (98-107); Estimated GFR 53; Globulin 2.1 g/dL (2.4-3.5); Glucose 120 mg/dL (83-110); Protein, Total 6.3 g/dL (5.8-8.1); Sodium 140 mmol/L (136-145)
[2022-09-09 10:14] LABS: Band 3 % (5-11); Eosinophils 1 % (0-10); Lymphocytes 19 % (21-51); MDiff Complete? YES; Monocytes 2 % (0-10); Neutrophil 40 % (42-75); RBC Morphology Normal; Reactive Lymphocytes 35 % (0-10); Reflex for Review?? YES
[2022-09-09] MEDS ORDERED: Labetalol HCl 100 MG/20 ML VIAL SLOW IVP PRN (11:53)
[2022-09-09] MEDS ORDERED: Nitroglycerin 0.4 MG TAB (25 Tab Bottle) SL PRN (11:53)
[2022-09-09] MEDS ORDERED: Lorazepam 0.5 MG TAB PO PRN (12:32)
[2022-09-09 13:08] LABS: Troponin I 0.011 ng/mL (< 0.028)
[2022-09-09 16:26] LABS: Troponin I Less than 0.010 ng/mL (< 0.028)
[2022-09-09] MEDS ORDERED: Communication Order-Pharmacy FS SCH (17:52)
[2022-09-09] MEDS: Atorvastatin Calcium 20 MG TAB PO SCH (20:38)
[2022-09-09] MEDS: Fluticasone Propionate Nasal Spray 16 gm Bottle NASAL SCH (20:39)
[2022-09-10 05:10] LABS: Anion Gap 13 mmol/L (10-20); BUN (Urea Nitrogen) 25 mg/dL (8.4-25.7); Calc. Creatinine Clearance 58 mL/min (70-130); Calcium 9.2 mg/dL (7.8-10.44); Carbon Dioxide 23 mmol/L (23-31); Cardiac Risk 4.2 (Less than 4.5); Chloride 105 mmol/L (98-107); Cholesterol 162 mg/dl (< 200 Desired); Estimated GFR 61; Glucose 100 mg/dL (83-110); HDL Cholesterol 39 mg/dL (>60 Neg Risk); LDL Cholesterol, Calculated 104 mg/dL; Potassium 3.7 mmol/L (3.5-5.1); Sodium 137 mmol/L (136-145); Triglycerides 96 mg/dL (Less than 150)
[2022-09-10 06:06] LABS: Band 4 % (5-11); Differential Comment Blast-Like Cell(s); Eosinophils 1 % (0-10); Hemoglobin 13.8 g/dL (14.0-18.0); Lymphocytes 45 % (21-51); MDiff Complete? YES; Macrocytosis SLIGHT = 6-15 cells (100X) (0-5/hpf); Mean Corpuscular HGB CONC 32.4 g/dL (32.0-36.0); Mean Corpuscular Hemoglobin 31.9 pg (27.0-31.0); Mean Corpuscular Volume 98.4 fl (78.0-98.0); Mean Platelet Volume 7.8 fL (7.4-10.4); Monocytes 1 % (0-10); Neutrophil 30 % (42-75); Ovalocytes SLIGHT = 2-5 cells (100X) (0-1/hpf); Platelet Count 225 thou/uL (130-400); Platelet Morphology Comment Appears Adequate; RBC Distribution Width 13.5 % (11.5-14.5); Reactive Lymphocytes 9 % (0-10); Red Blood Cell (RBC) Count 4.32 mill/uL (4.70-6.10); Reflex for Review?? NO; White Blood Cell (WBC) Count 9.8 thou/uL (4.8-10.8)
[2022-09-10] MEDS ORDERED: Amlodipine 10 MG TAB PO SCH (09:00)
[2022-09-10] MEDS ORDERED: Aspirin 81 mg Enteric Coated Tablet PO SCH (09:00)
[2022-09-10] MEDS ORDERED: Triamterene/Hydrochlorothiazide 37.5 mg/25 mg Tablet PO SCH (09:00)
[2022-09-10] MEDS ORDERED: Allopurinol 100 MG TAB PO SCH (09:00)
[2022-09-10] MEDS: Lisinopril 20 MG TAB PO SCH (09:30)
[2022-09-10] MEDS: Atorvastatin Calcium 20 MG TAB PO SCH (21:45)
[2022-09-10] MEDS: Cefdinir 300 MG CAP PO SCH (21:45)
[2022-09-10] MEDS: Fluticasone Propionate Nasal Spray 16 gm Bottle NASAL SCH (21:46)
[2022-09-11] MEDS ORDERED: Acetaminophen 500 MG TAB PO PRN (03:47)
[2022-09-11] MEDS: Lisinopril 20 MG TAB PO SCH (05:48)
[2022-09-11] MEDS ORDERED: fentaNYL PF 100 MCG/2 ML SYRINGE ONE (06:22)
[2022-09-11] MEDS ORDERED: Midazolam HCl 5 mg/5 ml Vial ONE (06:22)
[2022-09-11] MEDS ORDERED: niCARdipine 25 MG/10 ML VIAL ONE (06:23)
[2022-09-11] MEDS ORDERED: Insulin Regular 300 UNITS/3 ML VIAL ONE (06:23)
[2022-09-11] MEDS ORDERED: Rocuronium Bromide 50 MG/5 ML VIAL ONE (06:23)
[2022-09-11] MEDS ORDERED: Albumin 5% 500 ML ONE (06:38)
[2022-09-11] MEDS ORDERED: PHENYLEPHRINE-NS 100 MCG/ML 10 ML SYRINGE ONE (06:38)
[2022-09-11] MEDS ORDERED: Heparin 10,000 UNITS/1 ML VIAL 30,000 UNITS in Sodium Chloride 0.9% 1,000 ML FS SCH (07:15)
[2022-09-11] MEDS ORDERED: Protamine Sulfate 250 MG/25 ML VIAL ONE (07:33)
[2022-09-11] MEDS ORDERED: Mannitol 12.5 GM/50 ML ONE (07:33)
[2022-09-11] MEDS ORDERED: Rocuronium Bromide 10 MG/ML (10ML VIAL) ONE (07:33)
[2022-09-11] MEDS ORDERED: Norepinephrine 4 MG/4 ML VIAL ONE (07:33)
[2022-09-11] MEDS ORDERED: Thrombin 5000 UNITS/5 ML VIAL ONE (07:33)
[2022-09-11] MEDS ORDERED: Heparin 30,000 units/30 ml VIAL ONE (07:33)
[2022-09-11] MEDS ORDERED: Papaverine 60 MG/2 ML VIAL ONE (07:33)
[2022-09-11] MEDS ORDERED: PROPOFOL 200 MG/20 ML VIAL ONE (07:33)
[2022-09-11] MEDS ORDERED: Heparin 5,000 UNITS/ML VIAL ONE (07:33)
[2022-09-11] MEDS ORDERED: Calcium Chloride 1 GM/10 ML Abboject SYRINGE ONE (07:33)
[2022-09-11] MEDS ORDERED: Sodium Bicarb 50 MEQ/50 ML Abboject 8.4% SYRINGE ONE (07:33)
[2022-09-11] MEDS ORDERED: Magnesium Sulfate 1 GM/2 ML VIAL ONE (07:33)
[2022-09-11] MEDS ORDERED: Lidocaine 2% PF 100 mg/5 ml Syringe ONE (07:33)
[2022-09-11] MEDS ORDERED: Cardioplegic Soln 1,000 ML BAG ONE (07:33)
[2022-09-11] MEDS ORDERED: Aminocaproic Acid 5 GM/20 ML VIAL ONE (07:33)
[2022-09-11] MEDS: Cefdinir 300 MG CAP PO SCH (10:05)
[2022-09-11] MEDS ORDERED: NOREPINEPHRINE 8 MG/250 ML-D5W 250 ML ONE (12:06)
[2022-09-11] MEDS ORDERED: Nitroglycerin 50 MG/250 ML BOT 250 ML IVPB PRN (12:25)
[2022-09-11] MEDS ORDERED: Morphine 2 MG/ML VIAL SLOW IVP PRN (12:25)
[2022-09-11] MEDS ORDERED: Promethazine HCl 25 MG/ML VIAL IM PRN (12:25)
[2022-09-11] MEDS ORDERED: Bisacodyl 5 MG TAB PO PRN (12:25)
[2022-09-11] MEDS ORDERED: DOPamine 400 MG/D5W 250 ML 250 ML IVPB PRN (12:25)
[2022-09-11] MEDS ORDERED: Ondansetron PF 4 MG/2 ML Vial IVP PRN (12:25)
[2022-09-11] MEDS ORDERED: niCARdipine 25 MG in Sodium Chloride 0.9% 250 ML 250 ML IVPB PRN (12:25)
[2022-09-11] MEDS ORDERED: hydrALAZINE 20 MG/ML VIAL SLOW IVP PRN (12:25)
[2022-09-11] MEDS ORDERED: Bisacodyl 10 MG SUPP PR PRN (12:25)
[2022-09-11] MEDS ORDERED: Post-Op Insulin Drip Protocol IVPB ONE (12:25)
[2022-09-11] MEDS ORDERED: Guaifenesin DM 100-10/5 ML UDCUP PO PRN (12:25)
[2022-09-11] MEDS ORDERED: FENTANYL 50 MCG/ML 1 ML VIAL SLOW IVP PRN (12:25)
[2022-09-11] MEDS ORDERED: Mag-Al 1200 mg/1200 mg/30 ML UDCUP PO PRN (12:25)
[2022-09-11] MEDS ORDERED: Potassium Chloride 20 MEQ/100 ML PREMIX BAG IVPB PRN (12:25)
[2022-09-11] MEDS ORDERED: Hetastarch 6% 500 ML 500 ML IVPB PRN (12:25)
[2022-09-11] MEDS ORDERED: Acetaminophen 325 MG TAB PO PRN (12:25)
[2022-09-11 12:27] LABS: Actual Bicarbonate (HCO3a) 19.6 mEq/L (22-28); CO2 Tension 34.8 mmHg (35.0-45.0); Calcium, Ionized (arterial) 1.18 mmol/L (1.12-1.30); Carboxyhemoglobin (COHb) 0.5 gm% (0.0-3.0); Hemoglobin (Hb) 13.1 g/dL (14.0-18.0); O2 Tension (PaO2), arterial 150.7 mmHg (> 60.0); Potassium - ABG Lab 3.96 mmol/L (3.70-5.30); Puncture Site Arterial Line; pH, Arterial 7.37 (7.35-7.45)
[2022-09-11] MEDS ORDERED: Dextrose 5% in Water 1,000 ML IV PRN (12:45)
[2022-09-11] MEDS ORDERED: Dextrose 50% Abboject 50 ML SYRINGE SLOW IVP PRN (12:45)
[2022-09-11] MEDS ORDERED: HUMULIN R 100 UNITS in Sodium Chloride 0.9% 100 ML IVPB SCH (12:45)
[2022-09-11 12:46] LABS: Hemoglobin 12.8 g/dL (14.0-18.0); Mean Corpuscular HGB CONC 31.6 g/dL (32.0-36.0); Mean Corpuscular Hemoglobin 31.5 pg (27.0-31.0); Mean Corpuscular Volume 99.8 fl (78.0-98.0); Mean Platelet Volume 7.4 fL (7.4-10.4); Platelet Count 156 thou/uL (130-400); RBC Distribution Width 13.4 % (11.5-14.5); Red Blood Cell (RBC) Count 4.07 mill/uL (4.70-6.10); White Blood Cell (WBC) Count 9.2 thou/uL (4.8-10.8)
[2022-09-11 12:51] LABS: INR-International Normal Ratio 1.2; PTT 25.3 sec (22.9-36.1)
[2022-09-11] MEDS: Lactated Ringer's 1,000 ML IV SCH (12:52)
[2022-09-11 12:53] LABS: Anion Gap 13 mmol/L (10-20); BUN (Urea Nitrogen) 23 mg/dL (8.4-25.7); Calc. Creatinine Clearance 65 mL/min (70-130); Calcium 8.2 mg/dL (7.8-10.44); Carbon Dioxide 18 mmol/L (23-31); Chloride 110 mmol/L (98-107); Estimated GFR 69; Glucose 115 mg/dL (83-110); Potassium 4.1 mmol/L (3.5-5.1); Sodium 137 mmol/L (136-145)
[2022-09-11 13:13] LABS: Band 9 % (5-11); Eosinophils 2 % (0-10); Lymphocytes 14 % (21-51); MDiff Complete? YES; Monocytes 3 % (0-10); Neutrophil 71 % (42-75); Ovalocytes SLIGHT = 2-5 cells (100X) (0-1/hpf); Platelet Morphology Comment Appears Adequate; Polychromasia SLIGHT = 2-3 cells (100X) (0-2/hpf); Reactive Lymphocytes 1 % (0-10)
[2022-09-11] MEDS: FENTANYL 50 MCG/ML 1 ML VIAL SLOW IVP PRN ×3 (13:49→21:18)
[2022-09-11] MEDS: CEFAZOLIN 2 GM in Sodium Chloride 0.9% 100 ML IVPB SCH (15:07)
[2022-09-11] MEDS: HYDROcodone/Acetaminophen 5/325 mg Tablet PO PRN (15:41)
[2022-09-11 17:50] LABS: Potassium 4.3 mmol/L (3.5-5.1)
[2022-09-11] MEDS: Famotidine/PF 20 mg/2ml Vial SLOW IVP SCH (20:08)
[2022-09-11] MEDS: Insulin Regular 300 UNITS/3 ML VIAL SC PRN (20:08)
[2022-09-12] MEDS: HYDROcodone/Acetaminophen 5/325 mg Tablet PO PRN ×3 (00:42→18:30)
[2022-09-12] MEDS: CEFAZOLIN 2 GM in Sodium Chloride 0.9% 100 ML IVPB SCH ×2 (00:42→08:47)
[2022-09-12] MEDS: Insulin Regular 300 UNITS/3 ML VIAL SC PRN ×3 (00:49→20:32)
[2022-09-12] MEDS: Lactated Ringer's 1,000 ML IV SCH ×2 (00:53→15:22)
[2022-09-12 04:34] LABS: #Basophils 0.1 thou/uL (0.0-0.2); #Lymphocytes 1.6 thou/uL (1.20-3.40); #Monocytes 0.4 thou/uL (0.11-0.59); #Neutrophils 6.3 thou/uL (1.40-6.50); %Basophils 1.1 % (0.0-1.0); %Eosinophils 0.2 % (0.0-10.0); %Lymphocytes 18.6 % (21.0-51.0); %Monocytes 5.1 % (0.0-10.0); Hemoglobin 12.2 g/dL (14.0-18.0); Mean Corpuscular Hemoglobin 31.6 pg (27.0-31.0); Mean Corpuscular Volume 98.6 fl (78.0-98.0); Mean Platelet Volume 7.9 fL (7.4-10.4); Platelet Count 173 thou/uL (130-400); RBC Distribution Width 13.3 % (11.5-14.5); Red Blood Cell (RBC) Count 3.87 mill/uL (4.70-6.10); White Blood Cell (WBC) Count 8.4 thou/uL (4.8-10.8)
[2022-09-12 04:56] LABS: Anion Gap 11 mmol/L (10-20); BUN (Urea Nitrogen) 23 mg/dL (8.4-25.7); Calc. Creatinine Clearance 61 mL/min (70-130); Calcium 8.4 mg/dL (7.8-10.44); Carbon Dioxide 23 mmol/L (23-31); Chloride 109 mmol/L (98-107); Estimated GFR 64; Glucose 104 mg/dL (83-110); Potassium 3.9 mmol/L (3.5-5.1); Sodium 139 mmol/L (136-145)
[2022-09-12] MEDS: Aspirin 325 MG TAB PO SCH (08:47)
[2022-09-12] MEDS: Polyethylene Glycol 3350 17 GM Packet PO SCH (08:48)
[2022-09-12] MEDS: Magnesium 2 GM/50 ML(in water) 2 GM in Premix Bag 1 BAG IVPB SCH (08:48)
[2022-09-12] MEDS: Famotidine/PF 20 mg/2ml Vial SLOW IVP SCH ×2 (08:49→20:21)
[2022-09-12] MEDS: Enoxaparin Sodium 40 MG/0.4 ML SYRINGE SC SCH (08:49)
[2022-09-12 10:35] VITALS: BMI 23.3
[2022-09-12] MEDS ORDERED: Insulin Glargine 30 UNITS/0.3 ML VIAL SC PRN (12:35)
[2022-09-12] MEDS: Atorvastatin Calcium 10 MG TAB PO SCH (20:21)
[2022-09-13] MEDS: HYDROcodone/Acetaminophen 5/325 mg Tablet PO PRN (03:10)
[2022-09-13 04:15] LABS: #Basophils 0.1 thou/uL (0.0-0.2); #Eosinphils 0.2 thou/uL (0.0-0.7); #Lymphocytes 2.5 thou/uL (1.20-3.40); #Monocytes 0.2 thou/uL (0.11-0.59); %Basophils 1.2 % (0.0-1.0); %Eosinophils 2.6 % (0.0-10.0); %Lymphocytes 27.3 % (21.0-51.0); %Monocytes 2.4 % (0.0-10.0); %Neutrophils 66.6 % (42.0-75.0); Hemoglobin 11.1 g/dL (14.0-18.0); Mean Corpuscular HGB CONC 31.9 g/dL (32.0-36.0); Mean Corpuscular Hemoglobin 31.7 pg (27.0-31.0); Mean Corpuscular Volume 99.7 fl (78.0-98.0); Mean Platelet Volume 8.3 fL (7.4-10.4); Platelet Count 152 thou/uL (130-400); RBC Distribution Width 13.4 % (11.5-14.5); Red Blood Cell (RBC) Count 3.49 mill/uL (4.70-6.10)
[2022-09-13 04:32] LABS: Anion Gap 10 mmol/L (10-20); BUN (Urea Nitrogen) 28 mg/dL (8.4-25.7); Calc. Creatinine Clearance 56 mL/min (70-130); Calcium 8.3 mg/dL (7.8-10.44); Carbon Dioxide 24 mmol/L (23-31); Chloride 104 mmol/L (98-107); Estimated GFR 57; Glucose 92 mg/dL (83-110); Potassium 3.6 mmol/L (3.5-5.1); Sodium 134 mmol/L (136-145)
[2022-09-13] MEDS: Lactated Ringer's 1,000 ML IV SCH (04:55)
[2022-09-13] MEDS: Amiodarone 450 MG, Admixture Fee 1 EACH in Dextrose 5% in Water 250 ML IVPB SCH ×2 (05:06→14:33)
[2022-09-13] MEDS ORDERED: Famotidine 20 MG TAB PO SCH (09:00)
[2022-09-13] MEDS: Aspirin 325 MG TAB PO SCH (09:40)
[2022-09-13] MEDS: Magnesium 2 GM/50 ML(in water) 2 GM in Premix Bag 1 BAG IVPB SCH (09:40)
[2022-09-13] MEDS: Polyethylene Glycol 3350 17 GM Packet PO SCH (09:40)
[2022-09-13] MEDS: Enoxaparin Sodium 40 MG/0.4 ML SYRINGE SC SCH (09:40)
[2022-09-13] MEDS ORDERED: Bisacodyl 10 MG SUPP PR PRN (10:53)
[2022-09-13] MEDS ORDERED: Nitroglycerin 0.4 MG TAB (25 Tab Bottle) SL PRN (10:53)
[2022-09-13] MEDS ORDERED: Mineral Oil ENEMA PR PRN (10:53)
[2022-09-13] MEDS ORDERED: Mag-Al 1200 mg/1200 mg/30 ML UDCUP PO PRN (10:53)
[2022-09-13] MEDS ORDERED: Bisacodyl 5 MG TAB PO PRN (10:53)
[2022-09-13] MEDS: Insulin Regular 300 UNITS/3 ML VIAL SC PRN (11:16)
[2022-09-13] MEDS: Metoprolol Tartrate 25 MG TAB PO SCH (21:34)
[2022-09-13] MEDS: Atorvastatin Calcium 10 MG TAB PO SCH (21:34)
[2022-09-14] MEDS: Amiodarone 450 MG, Admixture Fee 1 EACH in Dextrose 5% in Water 250 ML IVPB SCH (06:31)
[2022-09-14] MEDS: HYDROcodone/Acetaminophen 5/325 mg Tablet PO PRN ×2 (06:48→22:07)
[2022-09-14] MEDS: Aspirin 81 mg Enteric Coated Tablet PO SCH (10:07)
[2022-09-14] MEDS: Potassium Chloride 10 MEQ TAB PO SCH (10:07)
[2022-09-14] MEDS: Enoxaparin Sodium 40 MG/0.4 ML SYRINGE SC SCH (10:08)
[2022-09-14] MEDS: Metoprolol Tartrate 25 MG TAB PO SCH ×2 (10:08→22:06)
[2022-09-14] MEDS: Furosemide 40 MG TAB PO SCH (10:08)
[2022-09-14] MEDS: Polyethylene Glycol 3350 17 GM Packet PO SCH (10:10)
[2022-09-14] MEDS: Atorvastatin Calcium 10 MG TAB PO SCH (22:06)
[2022-09-14] MEDS: Amiodarone 200 MG TAB PO SCH (22:06)
[2022-09-15 05:05] LABS: Anion Gap 12 mmol/L (10-20); BUN (Urea Nitrogen) 28 mg/dL (8.4-25.7); Calc. Creatinine Clearance 62 mL/min (70-130); Calcium 8.8 mg/dL (7.8-10.44); Carbon Dioxide 24 mmol/L (23-31); Chloride 105 mmol/L (98-107); Estimated GFR 63; Glucose 106 mg/dL (83-110); Magnesium 2.1 mg/dL (1.6-2.6); Sodium 137 mmol/L (136-145)
[2022-09-15] MEDS: Enoxaparin Sodium 40 MG/0.4 ML SYRINGE SC SCH (08:46)
[2022-09-15] MEDS: Amiodarone 200 MG TAB PO SCH ×2 (08:46→20:30)
[2022-09-15] MEDS: Polyethylene Glycol 3350 17 GM Packet PO SCH (08:46)
[2022-09-15] MEDS: Potassium Chloride 10 MEQ TAB PO SCH (08:47)
[2022-09-15] MEDS: Furosemide 40 MG TAB PO SCH (08:47)
[2022-09-15] MEDS: Aspirin 81 mg Enteric Coated Tablet PO SCH (08:47)
[2022-09-15] MEDS: Metoprolol Tartrate 25 MG TAB PO SCH ×2 (08:47→20:31)
[2022-09-15] MEDS ORDERED: Atorvastatin Calcium 10 MG TAB PO SCH (21:00)
[2022-09-15] MEDS: HYDROcodone/Acetaminophen 5/325 mg Tablet PO PRN (22:01)
[2022-09-16] MEDS: HYDROcodone/Acetaminophen 5/325 mg Tablet PO PRN (03:56)
[2022-09-16 07:26] VITALS: TEMP 97.6
[2022-09-16] MEDS: Potassium Chloride 10 MEQ TAB PO SCH (08:59)
[2022-09-16] MEDS: Aspirin 81 mg Enteric Coated Tablet PO SCH (09:00)
[2022-09-16] MEDS: Enoxaparin Sodium 40 MG/0.4 ML SYRINGE SC SCH (09:00)
[2022-09-16] MEDS: Metoprolol Tartrate 25 MG TAB PO SCH (09:00)
[2022-09-16] MEDS: Furosemide 40 MG TAB PO SCH (09:00)
[2022-09-16] MEDS: Amiodarone 200 MG TAB PO SCH (09:00)
[2022-09-16] MEDS: Polyethylene Glycol 3350 17 GM Packet PO SCH (09:01)
[2022-09-16 13:52] VITALS: BP 149/67
[2022-09-18 12:16] LABS: Actual Bicarbonate (HCO3a) 21.2 mEq/L (22-28); Analyzer IN Cardio OR; Base Excess (BEa) -3.2 mEq/L (-2.0 to +3.0); Calcium, Ionized (arterial) 1.12 mmol/L (1.12-1.30); Carboxyhemoglobin (COHb) 0.4 gm% (0.0-3.0); Hemoglobin (Hb) 13.3 g/dL (14.0-18.0); O2 Tension (PaO2), arterial 545.4 mmHg (> 60.0); Potassium - ABG Lab 3.15 mmol/L (3.70-5.30); pH, Arterial 7.39 (7.35-7.45)
[2022-09-18 12:17] LABS: Actual Bicarbonate (HCO3a) 20.5 mEq/L (22-28); Analyzer IN Cardio OR; CO2 Tension 35.7 mmHg (35.0-45.0); Calcium, Ionized (arterial) 1.16 mmol/L (1.12-1.30); Carboxyhemoglobin (COHb) 0.1 gm% (0.0-3.0); O2 Tension (PaO2), arterial 444.3 mmHg (> 60.0); Potassium - ABG Lab 3.75 mmol/L (3.70-5.30); pH, Arterial 7.38 (7.35-7.45)
[2022-09-18 12:17] LABS: Actual Bicarbonate (HCO3a) 20.6 mEq/L (22-28); Analyzer IN Cardio OR; Base Excess (BEa) -3.8 mEq/L (-2.0 to +3.0); CO2 Tension 35.2 mmHg (35.0-45.0); Calcium, Ionized (arterial) 1.07 mmol/L (1.12-1.30); Carboxyhemoglobin (COHb) 0.1 gm% (0.0-3.0); Hemoglobin (Hb) 11.2 g/dL (14.0-18.0); O2 Tension (PaO2), arterial 279.3 mmHg (> 60.0); Potassium - ABG Lab 4.17 mmol/L (3.70-5.30); pH, Arterial 7.39 (7.35-7.45)
[2022-09-18 12:17] LABS: Actual Bicarbonate (HCO3a) 22.4 mEq/L (22-28); Analyzer IN Cardio OR; CO2 Tension 36.5 mmHg (35.0-45.0); Calcium, Ionized (arterial) 1.06 mmol/L (1.12-1.30); Carboxyhemoglobin (COHb) 0.1 gm% (0.0-3.0); Hemoglobin (Hb) 11.1 g/dL (14.0-18.0); O2 Tension (PaO2), arterial 366.1 mmHg (> 60.0); Potassium - ABG Lab 4.21 mmol/L (3.70-5.30); pH, Arterial 7.41 (7.35-7.45)
[2022-09-18 12:17] LABS: Actual Bicarbonate (HCO3a) 20.3 mEq/L (22-28); Analyzer IN Cardio OR; Base Excess (BEa) -5.3 mEq/L (-2.0 to +3.0); CO2 Tension 39.5 mmHg (35.0-45.0); Calcium, Ionized (arterial) 1.08 mmol/L (1.12-1.30); Carboxyhemoglobin (COHb) 0.2 gm% (0.0-3.0); Hemoglobin (Hb) 12.4 g/dL (14.0-18.0); O2 Tension (PaO2), arterial 526.3 mmHg (> 60.0); Potassium - ABG Lab 3.48 mmol/L (3.70-5.30); pH, Arterial 7.33 (7.35-7.45)
[2022-09-18 12:24] LABS: Puncture Site Arterial Line
[2022-09-18 12:25] LABS: Puncture Site Arterial Line
[2022-09-18 12:25] LABS: Puncture Site Arterial Line
[2022-09-18 12:26] LABS: Puncture Site Arterial Line
[2022-09-18 12:26] LABS: Puncture Site Arterial Line
== END 2022-09-16 15:40 | disposition home or self-care (01) | DRG 236 ==
LOC: ERS 07:54 → ERHOLD 11:14 → 2NO 16:28 → CCU 09-11 07:51 → 2NO 09-13 15:52
PROVIDERS: ADMIT Internal Medicine; ATTEND Hospitalist
PROC: 02100Z9 Bypass Coronary Artery, One Artery from Left Internal Mammary, Open Approach (ICD-10-PCS; principal; 2022-09-11)
PROC: 021209W Bypass Coronary Artery, Three Arteries from Aorta with Autologous Venous Tissue, Open Approach (ICD-10-PCS; 2022-09-11)
PROC: 06BQ4ZZ Excision of Left Saphenous Vein, Percutaneous Endoscopic Approach (ICD-10-PCS; 2022-09-11)
PROC: 5A1221Z Performance of Cardiac Output, Continuous (ICD-10-PCS; 2022-09-11)
PROC: 02L70CK Occlusion of Left Atrial Appendage with Extraluminal Device, Open Approach (ICD-10-PCS; 2022-09-11)
DX: I25.10 Atherosclerotic heart disease of native coronary artery without angina pectoris (principal); C91.10 Chronic lymphocytic leukemia of B-cell type not having achieved remission; Z20.822 Contact with and (suspected) exposure to COVID-19; G62.9 Polyneuropathy, unspecified; K21.9 Gastro-esophageal reflux disease without esophagitis; I12.9 Hypertensive chronic kidney disease with stage 1 through stage 4 chronic kidney disease, or unspecified chronic kidney disease; N18.30 Chronic kidney disease, stage 3 unspecified; M54.16 Radiculopathy, lumbar region; G89.29 Other chronic pain; D64.9 Anemia, unspecified; I48.0 Paroxysmal atrial fibrillation; M54.9 Dorsalgia, unspecified; Z85.828 Personal history of other malignant neoplasm of skin; Z79.899 Other long term (current) drug therapy
CPT/HCPCS: 36415; 36416; 36430; 71045; 80048; 80053; 80061; 82550; 82553; 82805; 82947; 83735; 83880; 84484; 85025; 85610; 85730; 86850; 86900; 86901; 93005; 93010; 93798; 94002; 94150; 94760; 97139; C1751; C1776; J0282; J1265; J1642; J1644; J1650; J1815; J2001; J2150; J2250; J2405; J2440; J2704; J2720; J3010; J3370; J3475; J3480; J3490; J7070; J7120; P9045; S0017; S0028; U0003; U0005

== ENCOUNTER 2022-09-23 03:11 | Inpatient (IN) | payer MEDICARE ==
[2022-09-23 04:22] LABS: ALT (SGPT) 18 U/L (8-55); AST (SGOT) 11 U/L (5-34); Albumin 3.4 g/dL (3.4-4.8); Alkaline Phosphatase 88 U/L (40-110); Anion Gap 16 mmol/L (10-20); BUN (Urea Nitrogen) 32 mg/dL (8.4-25.7); Bilirubin, Total 1.2 mg/dL (0.2-1.2); Calc. Creatinine Clearance 0 mL/min (70-130); Carbon Dioxide 26 mmol/L (23-31); Chloride 98 mmol/L (98-107); Estimated GFR 42; Globulin 2.2 g/dL (2.4-3.5); Glucose 106 mg/dL (83-110); Protein, Total 5.6 g/dL (5.8-8.1); Sodium 136 mmol/L (136-145)
[2022-09-23 04:23] LABS: Hemoglobin 11.1 g/dL (14.0-18.0); Mean Corpuscular HGB CONC 31.3 g/dL (32.0-36.0); Mean Platelet Volume 8.5 fL (7.4-10.4); Platelet Count 366 10x3/uL (130-400); RBC Distribution Width 13.4 % (11.5-14.5); Red Blood Cell (RBC) Count 3.46 mill/uL (4.70-6.10); White Blood Cell (WBC) Count 8.7 10x3/uL (4.8-10.8)
[2022-09-23 04:45] LABS: CKMB 2.1 ng/mL (0-6.6)
[2022-09-23 05:06] LABS: Band 1 % (5-11); Elliptocytes SLIGHT = 2-5 cells (100X) (0-1/hpf); Eosinophils 5 % (0-10); Hypochromia SLIGHT = 6-15 cells (100X) (0-5/hpf); Large Platelets SLIGHT; Lymphocytes 20 % (21-51); MDiff Complete? YES; Macrocytosis SLIGHT = 6-15 cells (100X) (0-5/hpf); Monocytes 6 % (0-10); Neutrophil 65 % (42-75); Ovalocytes SLIGHT = 2-5 cells (100X) (0-1/hpf); Platelet Morphology Comment Appears Adequate; Polychromasia SLIGHT = 2-3 cells (100X) (0-2/hpf)
[2022-09-23] MEDS ORDERED: Furosemide 40 MG/4 ML VIAL ONE (05:46)
[2022-09-23] MEDS ORDERED: Nitroglycerin 0.4 MG TAB (25 Tab Bottle) SL PRN (07:39)
[2022-09-23] MEDS ORDERED: Cefdinir 300 MG CAP PO SCH (09:00)
[2022-09-23 09:01] LABS: Critical Call Chem Troponin I RESULT DECREASING; Troponin I 0.243 ng/mL (< 0.028)
[2022-09-23] MEDS: Potassium Chloride 10 MEQ TAB PO SCH (10:39)
[2022-09-23] MEDS: Aspirin 81 mg Enteric Coated Tablet PO SCH (10:39)
[2022-09-23] MEDS: Allopurinol 100 MG TAB PO SCH (10:39)
[2022-09-23] MEDS: Cefdinir 300 MG CAP PO SCH (10:39)
[2022-09-23] MEDS: Amiodarone 200 MG TAB PO SCH (10:39)
[2022-09-23] MEDS: Metoprolol Tartrate 50 MG TAB PO SCH ×2 (10:39→21:18)
[2022-09-23 10:46] VITALS: BMI 23.1
[2022-09-23] MEDS: Furosemide 40 MG/4 ML VIAL SLOW IVP SCH (17:38)
[2022-09-23] MEDS: Atorvastatin Calcium 40 MG TAB PO SCH (21:18)
[2022-09-23] MEDS: Acetaminophen 325 MG TAB PO PRN (21:18)
[2022-09-24] MEDS: Simethicone Chewable 80 MG TAB PO PRN ×3 (00:12→17:22)
[2022-09-24 04:53] LABS: #Basophils 0.1 thou/uL (0.0-0.2); #Eosinphils 0.5 thou/uL (0.0-0.7); #Lymphocytes 2.1 thou/uL (1.20-3.40); #Monocytes 0.2 thou/uL (0.11-0.59); #Neutrophils 3.1 thou/uL (1.40-6.50); %Basophils 1.3 % (0.0-1.0); %Eosinophils 8.7 % (0.0-10.0); %Lymphocytes 35.1 % (21.0-51.0); %Monocytes 2.8 % (0.0-10.0); Hemoglobin 10.2 g/dL (14.0-18.0); Mean Corpuscular HGB CONC 30.8 g/dL (32.0-36.0); Mean Platelet Volume 8.3 fL (7.4-10.4); Platelet Count 330 10x3/uL (130-400); RBC Distribution Width 13.4 % (11.5-14.5); Red Blood Cell (RBC) Count 3.18 mill/uL (4.70-6.10); White Blood Cell (WBC) Count 5.9 10x3/uL (4.8-10.8)
[2022-09-24 05:27] LABS: Anion Gap 14 mmol/L (10-20); BUN (Urea Nitrogen) 34 mg/dL (8.4-25.7); Calc. Creatinine Clearance 44 mL/min (70-130); Calcium 8.6 mg/dL (7.8-10.44); Carbon Dioxide 27 mmol/L (23-31); Chloride 99 mmol/L (98-107); Estimated GFR 43; Glucose 110 mg/dL (83-110); Potassium 3.9 mmol/L (3.5-5.1); Sodium 136 mmol/L (136-145)
[2022-09-24] MEDS: Furosemide 40 MG/4 ML VIAL SLOW IVP SCH ×2 (05:58→15:49)
[2022-09-24] MEDS: Aspirin 81 mg Enteric Coated Tablet PO SCH (09:49)
[2022-09-24] MEDS: Cefdinir 300 MG CAP PO SCH (09:49)
[2022-09-24] MEDS: Allopurinol 100 MG TAB PO SCH (09:49)
[2022-09-24] MEDS: Potassium Chloride 10 MEQ TAB PO SCH (09:49)
[2022-09-24] MEDS: Amiodarone 200 MG TAB PO SCH (09:49)
[2022-09-24] MEDS: Metoprolol Tartrate 50 MG TAB PO SCH ×2 (09:49→20:18)
[2022-09-24] MEDS: Enoxaparin Sodium 40 MG/0.4 ML SYRINGE SC SCH (09:49)
[2022-09-24 17:28] LABS: Anion Gap 15 mmol/L (10-20); BUN (Urea Nitrogen) 37 mg/dL (8.4-25.7); Calc. Creatinine Clearance 41 mL/min (70-130); Calcium 8.9 mg/dL (7.8-10.44); Carbon Dioxide 27 mmol/L (23-31); Chloride 97 mmol/L (98-107); Estimated GFR 41; Glucose 109 mg/dL (83-110); Sodium 135 mmol/L (136-145)
[2022-09-24 19:11] LABS: Bacteria/HPF None Seen HPF (None Seen); Bilirubin Negative (Negative); Blood, Urine Negative (Negative); Clarity Clear (Clear); Glucose, Urine (Dipstick) Normal (Negative); Ketone, Urine Negative (Negative); Leukocyte Negative Leu/uL (Negative); Nitrite Negative (Negative); Protein, Urine (Dipstick) Negative (Neg-Trace); RBC/HPF 0-3 HPF (0-3); Specific Gravity, Urine 1.011 (1.002-1.036); Squamous Epithelial None Seen HPF (0-3); Urobilinogen Normal mg/dL (Less than 2); WBC/HPF 0-3 HPF (0-3); pH, Urine 6.5 (5.0-9.0)
[2022-09-24 19:34] LABS: Creatinine, Urine 59.22 mg/dL (63-166); Protein, Urine Random Quant Less than 10 mg/dL (1-14); Sodium, Urine 57 mmol/L (Not Available)
[2022-09-24] MEDS: Atorvastatin Calcium 40 MG TAB PO SCH (20:18)
[2022-09-25] MEDS: Acetaminophen 325 MG TAB PO PRN (00:36)
[2022-09-25] MEDS: Simethicone Chewable 80 MG TAB PO PRN ×4 (00:37→20:04)
[2022-09-25] MEDS: Ondansetron PF 4 MG/2 ML Vial IVP PRN (03:56)
[2022-09-25 05:01] LABS: #Eosinphils 0.3 thou/uL (0.0-0.7); #Lymphocytes 1.9 thou/uL (1.20-3.40); #Monocytes 0.2 thou/uL (0.11-0.59); #Neutrophils 3.4 thou/uL (1.40-6.50); %Basophils 0.7 % (0.0-1.0); %Eosinophils 5.2 % (0.0-10.0); %Monocytes 2.5 % (0.0-10.0); %Neutrophils 58.6 % (42.0-75.0); Hemoglobin 10.4 g/dL (14.0-18.0); Mean Corpuscular HGB CONC 31.9 g/dL (32.0-36.0); Mean Corpuscular Hemoglobin 32.5 pg (27.0-31.0); Mean Platelet Volume 8.5 fL (7.4-10.4); Platelet Count 367 10x3/uL (130-400); RBC Distribution Width 13.4 % (11.5-14.5); Red Blood Cell (RBC) Count 3.21 mill/uL (4.70-6.10); White Blood Cell (WBC) Count 5.8 10x3/uL (4.8-10.8)
[2022-09-25 05:17] LABS: Anion Gap 16 mmol/L (10-20); BUN (Urea Nitrogen) 36 mg/dL (8.4-25.7); Calc. Creatinine Clearance 43 mL/min (70-130); Calcium 8.7 mg/dL (7.8-10.44); Carbon Dioxide 27 mmol/L (23-31); Chloride 97 mmol/L (98-107); Estimated GFR 42; Glucose 98 mg/dL (83-110); Potassium 3.5 mmol/L (3.5-5.1); Sodium 136 mmol/L (136-145)
[2022-09-25] MEDS: Albumin 25% 25 GM/100 ML BOT IVPB SCH ×2 (08:45→16:10)
[2022-09-25] MEDS: Potassium Chloride 10 MEQ TAB PO SCH (08:45)
[2022-09-25] MEDS: Enoxaparin Sodium 40 MG/0.4 ML SYRINGE SC SCH (08:45)
[2022-09-25] MEDS: Aspirin 81 mg Enteric Coated Tablet PO SCH (08:46)
[2022-09-25] MEDS: Metoprolol Tartrate 50 MG TAB PO SCH (08:46)
[2022-09-25] MEDS: Allopurinol 100 MG TAB PO SCH (08:46)
[2022-09-25] MEDS: Amiodarone 200 MG TAB PO SCH (08:46)
[2022-09-25] MEDS: Cefdinir 300 MG CAP PO SCH (08:46)
[2022-09-25 11:41] LABS: #Basophils 0.1 thou/uL (0.0-0.2); #Eosinphils 0.2 thou/uL (0.0-0.7); #Lymphocytes 2.3 thou/uL (1.20-3.40); #Monocytes 0.3 thou/uL (0.11-0.59); #Neutrophils 4.1 thou/uL (1.40-6.50); %Basophils 0.9 % (0.0-1.0); %Lymphocytes 32.9 % (21.0-51.0); %Monocytes 4.7 % (0.0-10.0); %Neutrophils 58.4 % (42.0-75.0); Hemoglobin 10.6 g/dL (14.0-18.0); Mean Corpuscular HGB CONC 31.2 g/dL (32.0-36.0); Mean Corpuscular Hemoglobin 32.2 pg (27.0-31.0); Mean Platelet Volume 8.6 fL (7.4-10.4); Platelet Count 392 10x3/uL (130-400); RBC Distribution Width 13.5 % (11.5-14.5); Red Blood Cell (RBC) Count 3.28 mill/uL (4.70-6.10)
[2022-09-25 11:47] LABS: Anion Gap 16 mmol/L (10-20); BUN (Urea Nitrogen) 37 mg/dL (8.4-25.7); Calc. Creatinine Clearance 43 mL/min (70-130); Calcium 8.9 mg/dL (7.8-10.44); Carbon Dioxide 26 mmol/L (23-31); Chloride 96 mmol/L (98-107); Estimated GFR 40; Glucose 122 mg/dL (83-110); Potassium 3.7 mmol/L (3.5-5.1); Sodium 134 mmol/L (136-145)
[2022-09-25 11:50] LABS: Troponin I 0.196 ng/mL (< 0.028)
[2022-09-25] MEDS ORDERED: Bisacodyl 5 MG TAB PO SCH (14:15)
[2022-09-25] MEDS: Atorvastatin Calcium 40 MG TAB PO SCH (20:03)
[2022-09-26] MEDS: Acetaminophen 325 MG TAB PO PRN ×2 (00:46→21:20)
[2022-09-26] MEDS: Simethicone Chewable 80 MG TAB PO PRN (01:35)
[2022-09-26] MEDS: Enoxaparin Sodium 40 MG/0.4 ML SYRINGE SC SCH (08:49)
[2022-09-26] MEDS: Cefdinir 300 MG CAP PO SCH (08:49)
[2022-09-26] MEDS: Potassium Chloride 10 MEQ TAB PO SCH (08:49)
[2022-09-26] MEDS: Aspirin 81 mg Enteric Coated Tablet PO SCH (08:49)
[2022-09-26] MEDS: Amiodarone 200 MG TAB PO SCH (08:49)
[2022-09-26] MEDS: Allopurinol 100 MG TAB PO SCH (08:49)
[2022-09-26 09:29] LABS: Albumin 3.6 g/dL (3.4-4.8); Anion Gap 14 mmol/L (10-20); BUN (Urea Nitrogen) 42 mg/dL (8.4-25.7); BUN/Creatinine Ratio 26.42; Calc. Creatinine Clearance 46 mL/min (70-130); Calcium 8.7 mg/dL (7.8-10.44); Carbon Dioxide 26 mmol/L (23-31); Chloride 99 mmol/L (98-107); Estimated GFR 43; Glucose 119 mg/dL (83-110); Phosphorus 3.5 mg/dL (2.3-4.7); Potassium 3.6 mmol/L (3.5-5.1); Sodium 135 mmol/L (136-145)
[2022-09-26] MEDS: Bisacodyl 5 MG TAB PO PRN (10:03)
[2022-09-26] MEDS ORDERED: Amiodarone 450 MG, Admixture Fee 1 EACH in Dextrose 5% in Water 250 ML IVPB SCH (12:30)
[2022-09-26] MEDS ORDERED: Polyethylene Glycol 3350 17 GM Packet PO SCH (13:00)
[2022-09-26] MEDS ORDERED: Lidocaine 1% (PF) 30 ML VIAL ONE (15:53)
[2022-09-26] MEDS ORDERED: Lidocaine 1% w/Epinephrine 1:100K 20 ML VIAL ONE (15:58)
[2022-09-26] MEDS ORDERED: Lidocaine 1% (PF) 30 ML VIAL SC SCH (16:15)
[2022-09-26] MEDS: Atorvastatin Calcium 40 MG TAB PO SCH (21:17)
[2022-09-27 05:10] LABS: Albumin 3.2 g/dL (3.4-4.8); Anion Gap 15 mmol/L (10-20); BUN (Urea Nitrogen) 50 mg/dL (8.4-25.7); BUN/Creatinine Ratio 29.24; Calc. Creatinine Clearance 44 mL/min (70-130); Calcium 8.4 mg/dL (7.8-10.44); Carbon Dioxide 26 mmol/L (23-31); Chloride 96 mmol/L (98-107); Estimated GFR 40; Glucose 104 mg/dL (83-110); Phosphorus 3.5 mg/dL (2.3-4.7); Potassium 3.5 mmol/L (3.5-5.1); Sodium 133 mmol/L (136-145)
[2022-09-27 08:13] LABS: Pleural Fluid, Protein 4.8 g/dL
[2022-09-27] MEDS: Potassium Chloride 10 MEQ TAB PO SCH (08:51)
[2022-09-27] MEDS: Albumin 25% 25 GM/100 ML BOT IVPB SCH ×3 (08:51→18:18)
[2022-09-27] MEDS: Aspirin 81 mg Enteric Coated Tablet PO SCH (08:52)
[2022-09-27] MEDS: Cefdinir 300 MG CAP PO SCH (08:52)
[2022-09-27] MEDS: Allopurinol 100 MG TAB PO SCH (08:52)
[2022-09-27] MEDS: Amiodarone 200 MG TAB PO SCH (08:52)
[2022-09-27] MEDS: Enoxaparin Sodium 40 MG/0.4 ML SYRINGE SC SCH (08:52)
[2022-09-27] MEDS: Polyethylene Glycol 3350 17 GM Packet PO SCH (08:52)
[2022-09-27] MEDS: Ondansetron PF 4 MG/2 ML Vial IVP PRN ×2 (09:47→15:55)
[2022-09-27] MEDS: Simethicone Chewable 80 MG TAB PO PRN ×2 (09:47→13:57)
[2022-09-27] MEDS: predniSONE 20 MG TAB PO SCH (15:55)
[2022-09-27 16:32] LABS: Hemoglobin 9.3 g/dL (14.0-18.0)
[2022-09-27] MEDS: Ondansetron PF 4 MG/2 ML Vial IVP SCH (21:07)
[2022-09-27] MEDS: Atorvastatin Calcium 40 MG TAB PO SCH (21:07)
[2022-09-28] MEDS: Simethicone Chewable 80 MG TAB PO PRN ×3 (00:05→21:47)
[2022-09-28 03:22] LABS: #Basophils 0.1 thou/uL (0.0-0.2); #Monocytes 0.1 thou/uL (0.11-0.59); #Neutrophils 2.9 thou/uL (1.40-6.50); %Basophils 1.7 % (0.0-1.0); %Eosinophils 0.1 % (0.0-10.0); %Lymphocytes 24.3 % (21.0-51.0); %Monocytes 2.4 % (0.0-10.0); %Neutrophils 71.5 % (42.0-75.0); Hemoglobin 9.6 g/dL (14.0-18.0); Mean Corpuscular HGB CONC 32.2 g/dL (32.0-36.0); Mean Platelet Volume 8.5 fL (7.4-10.4); Platelet Count 330 10x3/uL (130-400); RBC Distribution Width 13.2 % (11.5-14.5); Red Blood Cell (RBC) Count 2.89 mill/uL (4.70-6.10); White Blood Cell (WBC) Count 4.1 10x3/uL (4.8-10.8)
[2022-09-28 03:40] LABS: Anion Gap 17 mmol/L (10-20); BUN (Urea Nitrogen) 45 mg/dL (8.4-25.7); Calc. Creatinine Clearance 44 mL/min (70-130); Calcium 8.8 mg/dL (7.8-10.44); Carbon Dioxide 22 mmol/L (23-31); Chloride 96 mmol/L (98-107); Estimated GFR 39; Glucose 137 mg/dL (83-110); Potassium 4.1 mmol/L (3.5-5.1); Sodium 131 mmol/L (136-145)
[2022-09-28] MEDS: Ondansetron PF 4 MG/2 ML Vial IVP SCH ×4 (04:49→23:12)
[2022-09-28] MEDS: Allopurinol 100 MG TAB PO SCH (09:55)
[2022-09-28] MEDS: Potassium Chloride 10 MEQ TAB PO SCH (09:55)
[2022-09-28] MEDS: Cefdinir 300 MG CAP PO SCH (09:55)
[2022-09-28] MEDS: Aspirin 81 mg Enteric Coated Tablet PO SCH (09:55)
[2022-09-28] MEDS: Amiodarone 200 MG TAB PO SCH (09:56)
[2022-09-28] MEDS: Enoxaparin Sodium 40 MG/0.4 ML SYRINGE SC SCH (09:57)
[2022-09-28] MEDS: Polyethylene Glycol 3350 17 GM Packet PO SCH (09:57)
[2022-09-28] MEDS ORDERED: Sodium Chloride 0.9% 1,000 ML IV SCH (14:30)
[2022-09-28] MEDS: predniSONE 20 MG TAB PO SCH (15:42)
[2022-09-28 20:37] LABS: Creatinine, Urine 118.91 mg/dL (63-166); Sodium, Urine Less than 20 mmol/L (Not Available)
[2022-09-28] MEDS: Atorvastatin Calcium 40 MG TAB PO SCH (21:47)
[2022-09-29] MEDS: Ondansetron PF 4 MG/2 ML Vial IVP SCH ×4 (04:30→21:56)
[2022-09-29 05:32] LABS: Anion Gap 16 mmol/L (10-20); BUN (Urea Nitrogen) 50 mg/dL (8.4-25.7); Calc. Creatinine Clearance 42 mL/min (70-130); Calcium 8.6 mg/dL (7.8-10.44); Carbon Dioxide 23 mmol/L (23-31); Chloride 97 mmol/L (98-107); Estimated GFR 38; Glucose 140 mg/dL (83-110); Potassium 4.4 mmol/L (3.5-5.1); Sodium 132 mmol/L (136-145)
[2022-09-29 06:23] LABS: Anisocytosis SLIGHT = 6-15 cells (100X) (0-5/hpf); Band 4 % (5-11); Eosinophils 1 % (0-10); Hemoglobin 9.5 g/dL (14.0-18.0); Lymphocytes 21 % (21-51); MDiff Complete? YES; Mean Corpuscular HGB CONC 31.2 g/dL (32.0-36.0); Mean Platelet Volume 8.6 fL (7.4-10.4); Monocytes 5 % (0-10); Neutrophil 69 % (42-75); Platelet Count 365 10x3/uL (130-400); RBC Distribution Width 13.3 % (11.5-14.5); Red Blood Cell (RBC) Count 2.96 mill/uL (4.70-6.10); White Blood Cell (WBC) Count 5.3 10x3/uL (4.8-10.8)
[2022-09-29] MEDS: Cefdinir 300 MG CAP PO SCH (09:00)
[2022-09-29] MEDS ORDERED: PATIENT'S HOME MEDICATION PO SCH (09:00)
[2022-09-29] MEDS: Aspirin 81 mg Enteric Coated Tablet PO SCH (09:00)
[2022-09-29] MEDS: Allopurinol 100 MG TAB PO SCH (09:00)
[2022-09-29] MEDS: Simethicone Chewable 80 MG TAB PO PRN ×3 (09:01→23:41)
[2022-09-29] MEDS: Potassium Chloride 10 MEQ TAB PO SCH (09:01)
[2022-09-29] MEDS: Bisacodyl 5 MG TAB PO PRN (09:01)
[2022-09-29] MEDS: Amiodarone 200 MG TAB PO SCH (09:01)
[2022-09-29] MEDS: Enoxaparin Sodium 40 MG/0.4 ML SYRINGE SC SCH (09:02)
[2022-09-29] MEDS ORDERED: Empagliflozin 10 MG TAB PO SCH (12:15)
[2022-09-29] MEDS: Polyethylene Glycol 3350 17 GM Packet PO SCH (12:52)
[2022-09-29] MEDS: Milk Of Magnesia 30 ML UDCUP PO PRN (18:17)
[2022-09-29] MEDS ORDERED: Fleet Enema 133 ML BOT PR SCH (19:00)
[2022-09-29] MEDS: Atorvastatin Calcium 40 MG TAB PO SCH (20:54)
[2022-09-30] MEDS: clonazePAM 0.5 MG TAB PO PRN ×2 (00:09→20:26)
[2022-09-30] MEDS: Ondansetron PF 4 MG/2 ML Vial IVP SCH ×4 (04:37→21:45)
[2022-09-30] MEDS: Amiodarone 200 MG TAB PO SCH (09:28)
[2022-09-30] MEDS: Aspirin 81 mg Enteric Coated Tablet PO SCH (09:28)
[2022-09-30] MEDS: Enoxaparin Sodium 40 MG/0.4 ML SYRINGE SC SCH (09:28)
[2022-09-30] MEDS: Allopurinol 100 MG TAB PO SCH (09:28)
[2022-09-30] MEDS: Cefdinir 300 MG CAP PO SCH (09:28)
[2022-09-30] MEDS: Potassium Chloride 10 MEQ TAB PO SCH (09:28)
[2022-09-30] MEDS: Polyethylene Glycol 3350 17 GM Packet PO SCH (09:29)
[2022-09-30] MEDS ORDERED: Empagliflozin 10 MG TAB PO SCH (10:15)
[2022-09-30 12:27] LABS: Anion Gap 16 mmol/L (10-20); BUN (Urea Nitrogen) 56 mg/dL (8.4-25.7); Calc. Creatinine Clearance 36 mL/min (70-130); Calcium 8.8 mg/dL (7.8-10.44); Carbon Dioxide 25 mmol/L (23-31); Chloride 96 mmol/L (98-107); Estimated GFR 31; Glucose 111 mg/dL (83-110); Potassium 4.5 mmol/L (3.5-5.1); Sodium 132 mmol/L (136-145)
[2022-09-30] MEDS ORDERED: Furosemide 40 MG/4 ML VIAL SLOW IVP SCH (18:00)
[2022-09-30] MEDS: Atorvastatin Calcium 40 MG TAB PO SCH (20:26)
[2022-10-01] MEDS: Ondansetron PF 4 MG/2 ML Vial IVP SCH ×4 (04:30→22:31)
[2022-10-01 07:17] LABS: Hemoglobin 9.6 g/dL (14.0-18.0); Mean Corpuscular Hemoglobin 34.6 pg (27.0-31.0); Mean Platelet Volume 8.1 fL (7.4-10.4); Platelet Count 332 10x3/uL (130-400); RBC Distribution Width 13.1 % (11.5-14.5); Red Blood Cell (RBC) Count 2.78 mill/uL (4.70-6.10); White Blood Cell (WBC) Count 5.6 10x3/uL (4.8-10.8)
[2022-10-01 07:26] LABS: Albumin 3.4 g/dL (3.4-4.8); Anion Gap 13 mmol/L (10-20); BUN (Urea Nitrogen) 56 mg/dL (8.4-25.7); BUN/Creatinine Ratio 27.18; Calc. Creatinine Clearance 36 mL/min (70-130); Calcium 8.7 mg/dL (7.8-10.44); Carbon Dioxide 26 mmol/L (23-31); Chloride 97 mmol/L (98-107); Estimated GFR 32; Glucose 103 mg/dL (83-110); Potassium 4.4 mmol/L (3.5-5.1); Sodium 132 mmol/L (136-145)
[2022-10-01 07:28] LABS: Iron 23 ug/dL (65-175); Iron Binding Capacity, Total 265 mcg/dL (261-462)
[2022-10-01 08:34] LABS: Band 2 % (5-11); Eosinophils 1 % (0-10); Lymphocytes 48 % (21-51); MDiff Complete? YES; Monocytes 4 % (0-10); Neutrophil 45 % (42-75); Platelet Morphology Comment Appears Adequate; Polychromasia SLIGHT = 2-3 cells (100X) (0-2/hpf)
[2022-10-01] MEDS: Cefdinir 300 MG CAP PO SCH (08:52)
[2022-10-01] MEDS: Amiodarone 200 MG TAB PO SCH (08:52)
[2022-10-01] MEDS: Allopurinol 100 MG TAB PO SCH (08:52)
[2022-10-01] MEDS: Enoxaparin Sodium 40 MG/0.4 ML SYRINGE SC SCH (08:52)
[2022-10-01] MEDS: Potassium Chloride 10 MEQ TAB PO SCH (08:52)
[2022-10-01] MEDS: Aspirin 81 mg Enteric Coated Tablet PO SCH (08:52)
[2022-10-01] MEDS: Iron, Sodium Ferric Gluconate 250 MG in Sodium Chloride 0.9% 250 ML 250 ML IVPB SCH (11:21)
[2022-10-01] MEDS ORDERED: Furosemide 40 MG/4 ML VIAL SLOW IVP SCH (11:30)
[2022-10-01] MEDS: Polyethylene Glycol 3350 17 GM Packet PO SCH (12:47)
[2022-10-01 16:31] LABS: Creatinine, Urine 40.45 mg/dL (63-166)
[2022-10-01] MEDS: Atorvastatin Calcium 40 MG TAB PO SCH (20:29)
[2022-10-01] MEDS: clonazePAM 0.5 MG TAB PO PRN (23:36)
[2022-10-02] MEDS: Ondansetron PF 4 MG/2 ML Vial IVP SCH ×4 (04:27→22:06)
[2022-10-02 05:17] LABS: Albumin 3.3 g/dL (3.4-4.8); Anion Gap 17 mmol/L (10-20); BUN (Urea Nitrogen) 53 mg/dL (8.4-25.7); BUN/Creatinine Ratio 26.11; Calc. Creatinine Clearance 37 mL/min (70-130); Calcium 8.6 mg/dL (7.8-10.44); Carbon Dioxide 20 mmol/L (23-31); Chloride 100 mmol/L (98-107); Estimated GFR 32; Glucose 105 mg/dL (83-110); Phosphorus 4.1 mg/dL (2.3-4.7); Potassium 4.3 mmol/L (3.5-5.1); Sodium 133 mmol/L (136-145)
[2022-10-02] MEDS: Aspirin 81 mg Enteric Coated Tablet PO SCH (08:49)
[2022-10-02] MEDS: Enoxaparin Sodium 40 MG/0.4 ML SYRINGE SC SCH (08:49)
[2022-10-02] MEDS: Spironolactone 25 MG TAB PO SCH (08:49)
[2022-10-02] MEDS: Polyethylene Glycol 3350 17 GM Packet PO SCH (08:49)
[2022-10-02] MEDS: Furosemide 40 MG TAB PO SCH (08:49)
[2022-10-02] MEDS: Allopurinol 100 MG TAB PO SCH (08:49)
[2022-10-02] MEDS: Amiodarone 200 MG TAB PO SCH (08:49)
[2022-10-02] MEDS: Potassium Chloride 10 MEQ TAB PO SCH (10:04)
[2022-10-02] MEDS ORDERED: Empagliflozin 10 MG TAB PO SCH (10:15)
[2022-10-02] MEDS ORDERED: Furosemide 40 MG/4 ML VIAL SLOW IVP SCH (11:30)
[2022-10-02] MEDS: Iron, Sodium Ferric Gluconate 250 MG in Sodium Chloride 0.9% 250 ML 250 ML IVPB SCH (13:14)
[2022-10-02] MEDS: Atorvastatin Calcium 40 MG TAB PO SCH (19:18)
[2022-10-02] MEDS: Simethicone Chewable 80 MG TAB PO PRN (19:18)
[2022-10-02] MEDS: Bisacodyl 5 MG TAB PO PRN (19:21)
[2022-10-02] MEDS: clonazePAM 0.5 MG TAB PO PRN (22:06)
[2022-10-03] MEDS ORDERED: traZODone HCl 50 MG TAB PO SCH (01:30)
[2022-10-03] MEDS ORDERED: traZODone HCl 50 MG TAB ONE (01:39)
[2022-10-03] MEDS: Milk Of Magnesia 30 ML UDCUP PO PRN (03:49)
[2022-10-03 04:58] LABS: Albumin 3.3 g/dL (3.4-4.8); Anion Gap 14 mmol/L (10-20); BUN (Urea Nitrogen) 51 mg/dL (8.4-25.7); BUN/Creatinine Ratio 24.88; Calc. Creatinine Clearance 37 mL/min (70-130); Calcium 8.6 mg/dL (7.8-10.44); Carbon Dioxide 24 mmol/L (23-31); Chloride 97 mmol/L (98-107); Estimated GFR 32; Glucose 124 mg/dL (83-110); Magnesium 2.4 mg/dL (1.6-2.6); Phosphorus 3.9 mg/dL (2.3-4.7); Potassium 4.2 mmol/L (3.5-5.1); Sodium 131 mmol/L (136-145)
[2022-10-03] MEDS: Ondansetron PF 4 MG/2 ML Vial IVP SCH ×3 (05:19→15:47)
[2022-10-03 05:34] LABS: Band 2 % (5-11); Blast 7 % (0-0); Burr Cells SLIGHT = 2-5 cells (100X) (0-1/hpf); Eosinophils 2 % (0-10); Hemoglobin 9.5 g/dL (14.0-18.0); Lymphocytes 31 % (21-51); MDiff Complete? YES; Macrocytosis MODERATE=16-30 cells (100X) (0-5/hpf); Mean Corpuscular HGB CONC 32.1 g/dL (32.0-36.0); Mean Corpuscular Hemoglobin 32.5 pg (27.0-31.0); Mean Platelet Volume 9.3 fL (7.4-10.4); Monocytes 2 % (0-10); Myelocyte 1 % (0-0); Neutrophil 51 % (42-75); Ovalocytes SLIGHT = 2-5 cells (100X) (0-1/hpf); Platelet Count 274 10x3/uL (130-400); Platelet Morphology Comment Appears Adequate; RBC Distribution Width 13.3 % (11.5-14.5); Reactive Lymphocytes 3 % (0-10); Red Blood Cell (RBC) Count 2.92 mill/uL (4.70-6.10); Reflex for Review?? NO; White Blood Cell (WBC) Count 8.5 10x3/uL (4.8-10.8)
[2022-10-03] MEDS: Enoxaparin Sodium 40 MG/0.4 ML SYRINGE SC SCH (09:13)
[2022-10-03] MEDS: Allopurinol 100 MG TAB PO SCH (09:14)
[2022-10-03] MEDS: Furosemide 40 MG TAB PO SCH (09:14)
[2022-10-03] MEDS: Spironolactone 25 MG TAB PO SCH (09:14)
[2022-10-03] MEDS: Potassium Chloride 10 MEQ TAB PO SCH (09:14)
[2022-10-03] MEDS: Amiodarone 200 MG TAB PO SCH (09:14)
[2022-10-03] MEDS: Aspirin 81 mg Enteric Coated Tablet PO SCH (09:14)
[2022-10-03] MEDS: Polyethylene Glycol 3350 17 GM Packet PO SCH (09:24)
[2022-10-03 11:52] VITALS: TEMP 98.5
[2022-10-03] MEDS ORDERED: Albumin 25% 25 GM/100 ML BOT IVPB SCH (15:00)
[2022-10-03] MEDS: Iron, Sodium Ferric Gluconate 250 MG in Sodium Chloride 0.9% 250 ML 250 ML IVPB SCH (15:46)
[2022-10-03 16:29] VITALS: BP 138/67
== END 2022-10-03 16:18 | DRG 314 ==
LOC: ERS 03:11 → 2NO 05:55
PROVIDERS: ADMIT Internal Medicine; ATTEND Internal Medicine
PROC: 0W9B3ZZ Drainage of Left Pleural Cavity, Percutaneous Approach (ICD-10-PCS; principal; 2022-09-26)
DX: T82.897A Other specified complication of cardiac prosthetic devices, implants and grafts, initial encounter (principal); I50.33 Acute on chronic diastolic (congestive) heart failure; J96.00 Acute respiratory failure, unspecified whether with hypoxia or hypercapnia; I24.1 Dressler's syndrome; I13.0 Hypertensive heart and chronic kidney disease with heart failure and stage 1 through stage 4 chronic kidney disease, or unspecified chronic kidney disease; C91.10 Chronic lymphocytic leukemia of B-cell type not having achieved remission; N17.9 Acute kidney failure, unspecified; I31.39 Other pericardial effusion (noninflammatory); E87.1 Hypo-osmolality and hyponatremia; J91.8 Pleural effusion in other conditions classified elsewhere; E87.70 Fluid overload, unspecified; I25.10 Atherosclerotic heart disease of native coronary artery without angina pectoris; Z20.822 Contact with and (suspected) exposure to COVID-19; M10.9 Gout, unspecified; I48.0 Paroxysmal atrial fibrillation; G62.9 Polyneuropathy, unspecified; D64.9 Anemia, unspecified; N18.2 Chronic kidney disease, stage 2 (mild); N28.1 Cyst of kidney, acquired; Z95.1 Presence of aortocoronary bypass graft; Z79.899 Other long term (current) drug therapy; I95.1 Orthostatic hypotension; Y83.2 Surgical operation with anastomosis, bypass or graft as the cause of abnormal reaction of the patient, or of later complication, without mention of misadventure at the time of the procedure
CPT/HCPCS: 36415; 36416; 71045; 71046; 76770; 80048; 80053; 80069; 81001; 82040; 82553; 82570; 82728; 82945; 83540; 83550; 83615; 83735; 83880; 83930; 83935; 84156; 84157; 84300; 84484; 84540; 85014; 85018; 85025; 87070; 87205; 87811; 93005; 93010; 93306; 93798; 94640; 96374; J0282; J1650; J1940; J2001; J2405; J2916; J7050; J7070; J7512; J7620; P9047; U0003; U0005

== ENCOUNTER 2022-10-05 00:45 | Emergency (ER) | payer MEDICARE ==
[2022-10-05] MEDS ORDERED: EPINEPHrine 1 MG/10 ML Abboject SYRINGE ONE (00:47)
== END 2022-10-05 00:57 | disposition expired ==
LOC: ERS 00:45
DX: I46.9 Cardiac arrest, cause unspecified (principal); I11.0 Hypertensive heart disease with heart failure; I50.9 Heart failure, unspecified
CPT/HCPCS: 92950; J0171